=== PATIENT | female | born 1965 | race Caucasian/White ===

== ENCOUNTER 2024-09-03 10:14 | Outpatient (REF) | payer OTHER, SELFPAY ==
--- NOTE | 2024-09-03 10:18 | PFT_ITS ---
Spirometry [] Lung Volumes [] Diffusion Capacity [] Methacholine Challenge [] Flow Volume Loops [] MVV [] MIP/MEP(Max inspiratory pressure/Max expiratory pressure) [] 6 Minute Walk Test [] ABG [] Interpretation [] MTDD
[2024-09-03 11:22] VITALS: PULSE 90; O2SAT 97
--- OUTSIDE RECORDS SUMMARY | 2024-09-03 11:54 | XMS_ITS | Encounter Summary ---
Author Organization [facility] Address [address] [place] [address] Care Team Providers Care Grapple Crew Leader Name Role Phone Lise Decker [place] Primary Care Provider [phone] Encounter Details Date Type Department Care Team (Late st Contact Info) Description 04/25/2024 Orders Only [facility] CT Scan Department [address] [place] [address] Linda Kaufman Social History Tobacco Use Types Packs/Day Years Used Date Smoking Tobacco: Never Assessed Comments Unknown Sex and Gender Information Value Date Recorded Sex Assigned at Female 10/04/2023 6:02 PM EDT Legal Sex Female 3:32 PM EDT Gender Identity Not on file Sexual Orientation Not on file documented as of this encounter Plan of Treatment Not on file documented as of this encounter Visit Diagnoses Not on filedocumented in this encounter Additional Health Concerns Infection Onset Date Last Indicated Resolved Time R/O Respiratory Virus Infection 07/09/2024 07/09/2024 11:01 AM EST R/O Influenza 07/09/2024 07/09/2024 07/09/2024 11: 01 AM EST COVID-19 - Suspected infection 07/09/2024 07/09/2024 07/09/2024 11:01 AM EST R/O Respiratory Virus Infection 07/30/2024 07/30/2024 6:45 PM EDT R/O Influenza 07/30/2024 07/30/2024 07/30/2024 6:4 5 PM EDT COVID-19 - Suspected infection 07/30/2024 07/30/2024 07/30/2024 6:45 PM EDT R/O Respiratory Virus Infection 08/19/2024 04/08/202 5 08/19/2024 1:32 PM EDT R/O Influenza 08/19/2024 08/19/2024 08/19/2024 1:3 2 PM EDT COVID-19 - Suspected infection 08/19/2024 08/19/2024 08/19/2024 1:32 PM EDT documented as of this encounter Care Teams Grapple Crew Leader Relationship Specialty Start Date End Date Lise Decker NP [address] [address] PCP - General 07/09/24 documented as of this encounter
--- OUTSIDE RECORDS SUMMARY | 2024-09-03 11:54 | XMS_ITS ---
Author Organization Andreina Hussein Address [address] [place] [address] Care Team Providers Care Network Technician Name Role Phone Rosales Hdz Primary Care Provider [phone] REASON FOR VISIT (IN OFFICE), Follow Up Encounters Encounter Location Date Provider Diagnosis Andreina Hussein [address] [place] [address] 09/19/19 24 Rosales Hdz PLAN OF TREATMENT No Information
--- OUTSIDE RECORDS SUMMARY | 2024-09-03 11:54 | XMS_ITS | Clinical Summary ---
Author Organization [facility] Address [address] [place] [address] Care Team Providers Care Pattern Illustrator Name Role Phone Lise Decker LAWRENCE Primary Care Provider [phone] Allergies No known active allergies Medications Ventolin HFA 90 mcg/actuation inhaler Inhale 2 puffs by mouth every 6 hours as needed. 5 Active escitalopram (LEXAPRO) 10 mg tablet Take 10 mg by mouth once a day. 5 Active levothyroxine (SYNTHROID, LEVOTHROID) 100 mcg tablet Take 100 mcg by mouth daily. Active LORazepam (ATIVAN) 1 mg tablet Take 1 mg by mouth every 6 hours as needed. Active albuterol (PROAIR HFA,VENTOLIN HFA) 90 mcg inhaler Inhale 2 puffs (180 mcg total) by mouth every 6 hours as needed for wheezing or shortness of breath. Use with spacer. 18 g 5 Active predniSONE (DELTASONE) 20 mg tablet Take 2 tablets (40 mg total) by mouth once a day. 10 tablet 5 Active azithromycin (ZITHROMAX) 250 mg tablet Take 1 tablet (250 mg total) by mouth once a day for 5 days. Take first 2 tablets together, then 1 every day until finished. 6 tablet 5 08/25/19 25 Encounters Date Type Department Care Team Description 08/19/2024 12:44 PM EDT - 08/19/2024 6:08 PM EDT Emergency [facility] Emergency Department [address] [place] [id number] Magdaleno Juárez MD Hyder, Eric C, MD COPD exacerbation (HCC) (Primary Dx) Discharge Disposition: Home or Self Care () 07/30/2024 6:07 PM EDT - 07/30/2024 10:22 PM EDT Emergency [facility] Emergency Department [address] [place] [id number] Galileo Zamora MD Exacerbation of asthma, unspecified asthma severity, unspecified whether persistent (Primary Dx) Discharge Disposition: Home or Self Care () 07/09/2024 10:05 AM EST - 07/09/2024 12:17 PM EST Emergency [facility] Emergency Department [address] [place] [id number] Aurelia Singleton, Vomiting without nausea, unspecified vomiting type (Primary Dx) Discharge Disposition: Home or Self Care () from Last 3 Months Social History Tobacco Use Types Packs/Day Years Used Date Smoking Tobacco: Former Cigarettes Smokeless Tobacco: Never Tobacco Cessation:Counseling Given: Not Answered Alcohol Use Standard Drinks/Week Comments Not Currently 0 (1 standard drink = 0.6 oz pur e alcohol) Comments No Sex and Gender Information Value Date Recorded Sex Assigned at Female 10/04/2023 6:02 PM EDT Legal Sex Female 3:32 PM EDT Gender Identity Not on file Sexual Orientation Not on file Last Filed Vital Signs Vital Sign Reading Time Taken Comments Blood Pressure 134/97 08/19/2024 3:14 PM EDT Pulse 86 08/19/2024 3:14 PM EDT Temperature 36.6 ??C (97.8 ??F) 08/19/2024 12:31 PM E DT Respiratory Rate 22 08/19/2024 12:31 PM EDT Oxygen Saturation 94% 08/19/2024 3:14 PM EDT Inhaled Oxygen Concentration - - Weight 77.1 kg (170 lb) 08/19/2024 12:31 PM EDT Height 162.6 cm (5' 4 ) 08/19/2024 12:31 PM EDT Body Mass Index 29.18 08/19/2024 12:31 PM EDT Plan of Treatment Health Maintenance Due Date Last Done Comments Cologuard 1964 Colon Cancer Screening 1964 Colonoscopy 1964 FOBT / Fit Test 1964 HIV Screening 1964 Hepatitis C Screening 1964 Sigmoidoscopy 1964 Pneumococcal Vaccine: 50+ Years (1 of 2 - PCV) 1983 DTaP,Tdap,and Td Vaccines (1 - Tdap) 1986 Mammogram 2004 Zoster Vaccines (1 of 2) 2014 COVID-19 Vaccine (5 - season) 2024 02/03/2022, 04/22/2021, 06/10/2020, Additional history exists RSV Vaccine (60+ years old and patients) (1 - Risk 60-74 years 1-dose series) 2024 Alcohol/Substance Use Screening 05/14/2024 Depression Screening and Follow-Up 05/14/2024 Social Drivers of Health Annual Screening 05/14/2024 Influenza Vaccine (Season Ended) 2025 04/24/2023, 02/07/2017, 04/11/2016 CT Lung Cancer Screening (12 months, previous LungRADS 1 or 2) 08/19/2025 08/19/2024, 05/15/2024 Hepatitis B Vaccines Aged Out No long er eligible based on patient's age to complete this topic Procedures * Due to [place] state law, this organization might not be sharing negative HIV tests. Procedure Name Priority Date/Time Associated Diagnosis Comments CT CHEST PULMONARY EMBOLISM W CONTRAST STAT 08/19/2024 3:51 PM EDT TROPONIN T HIGH SENSITIVITY Timed 08/19/2024 3:12 PM EDT PTT STAT 08/19/2024 2:00 PM EDT PROTIME-INR STAT 08/19/2024 2:00 PM EDT BLOOD GAS, VENOUS STAT 08/19/2024 2:0 0 PM EDT LACTIC ACID, PLASMA W/ REPEAT STAT 08/19/2024 2:00 PM EDT MVL QS - COVID-19, FLU A/B & RSV RNA PCR, SYMPTOMATIC STAT 08/19/2024 12:43 PM EDT TROPONIN T HIGH SENSITIVITY Timed 08/19/2024 12:41 PM EDT BASIC METABOLIC PANEL STAT 08/19/2024 12:41 PM EDT CBC AUTO DIFFERENTIAL STAT 08/19/2024 12:41 PM EDT ECG 12-LEAD STAT 08/19/2024 12:33 PM EDT MAGNESIUM STAT 07/30/2024 8:58 PM EDT BASIC METABOLIC PANEL STAT 07/30/2024 8:58 PM EDT XR CHEST 2 VW STAT 07/30/2024 8:52 PM EDT CBC AUTO DIFFERENTIAL STAT 07/30/2024 7:42 PM EDT MVL QS - COVID-19, FLU A/B & RSV RNA PCR, SYMPTOMATIC STAT 07/30/2024 6:00 PM EDT ECG 12-LEAD STAT 07/30/2024 5:54 PM EDT XR CHEST 2 VW STAT 07/09/2024 11:54 AM EST LIPASE STAT 07/09/2024 11:32 AM EST COMPREHENSIVE METABOLIC PANEL STAT 07/09/2024 11:32 AM EST CBC AUTO DIFFERENTIAL STAT 07/09/2024 11:32 AM EST MVL QS - COVID-19, FLU A/B & RSV RNA PCR, SYMPTOMATIC STAT 07/09/2024 10:05 AM EST from Last 3 Months Results * Due to [place] state law, this organization might not be sharing negative HIV tests. * CT Chest Pulmonary Embolism W Contrast (08/19/2024 3:51 PM EDT) Anatomical Region Laterality Modality Body Computed Tomogra phy 08/19/2024 4:56 PM EDT Impressions 08/19/2024 5:22 PM EDT 1. ??No evidence of pulmonary embolism. 2. ??No acute abnormality in the chest. 3. ??Background mild mixed centrilobular and paraseptal emphysema. I, Lise Rizo, have reviewed the examination and concur with the findings as reported or so edited. Trainee: ??Otoniel Hodges If this radiology report contains a blank impression section, it is an incomplete radiology report. ??Please contact the interpreting radiologist or applicable radiology division as soon as possible to obtain the completed interpretation. ? Workstation ID: [id number] Up-to-date CT equipment and radiation dose reduction techniques were employed. CTDIvol: .8 - 17.0 mGy. DLP: 495 mGy-cm. Narrative 08/19/2024 5:22 PM EDT COMPARISON: CT chest 05/15/2024 ?? FINDINGS: Exam limited by respiratory motion artifact. Pulmonary arteries: The pulmonary arteries are normal in caliber without intraluminal filling defects to indicate pulmonary embolism. ?? Lower neck: Unremarkable. Lungs and Airways: The central airways are patent. Bilateral lower lobe bronchial wall thickening and irregularity. Background mild mixed emphysema. There is no consolidation or septal thickening. Dependent atelectasis. Pleura: There is no pleural effusion or pneumothorax. Heart and Mediastinum: Heart size is normal. ??There is no pericardial effusion. The thoracic aorta is normal in caliber without evidence of dissection. ??No mediastinal or hilar lymphadenopathy. Patulous esophagus. Small hiatal hernia. Upper Abdomen: Limited evaluation of the upper abdomen is unremarkable. Bones and Soft Tissues: There are no suspicious osseous lesions. No acute osseous or soft tissue abnormality. Resulting Agency Comment [id number] Procedure Note Lise Rizo MD PhD - 08/19/2024 COMPARISON: CT chest 05/15/2024 FINDINGS: Exam limited by respiratory motion artifact. Pulmonary arteries: The pulmonary arteries are normal in caliber withoutintraluminal filling defects to indicate pulmonary embolism. Lower neck: Unremarkable. Lungs and Airways: The central airways are patent. Bilateral lower lobebronchial wall thickening and irregularity. Background mild mixedemphysema. There is no consolidation or septal thickening. Dependentatelectasis. Pleura: There is no pleural effusion or pneumothorax. Heart and Mediastinum: Heart size is normal. There is no pericardialeffusion. The thoracic aorta is normal in caliber without evidence ofdissection. No mediastinal or hilar lymphadenopathy. Patulous esophagus.Small hiatal hernia. Upper Abdomen: Limited evaluation of the upper abdomen is unremarkable. Bones and Soft Tissues: There are no suspicious osseous lesions. No acuteosseous or soft tissue abnormality. IMPRESSION: 1. No evidence of pulmonary embolism. 2. No acute abnormality in the chest. 3. Background mild mixed centrilobular and paraseptal emphysema. I, Lise Rizo, have reviewed the examination and concur with thefindings as reported or so edited. Trainee: Otoniel Hodges If this radiology report contains a blank impression section, it is anincomplete radiology report. Please contact the interpreting radiologistor applicable radiology division as soon as possible to obtain thecompleted interpretation. Workstation ID: [id number] Up-to-date CT equipment and radiation dose reduction techniques wereemployed. CTDIvol: .8 - 17.0 mGy. DLP: 495 mGy-cm. Brittney MITCHELL [facility] CT PROCEDURES Final Resul t * Troponin T, High Sensitivity X2 (now + 2hrs) (08/19/2024 3:12 PM EDT) Only the most recent of2 resultswithin the time period is included. Troponin T High Sensitivity 6 6 - 14 ng/L 08/19/2024 3:41 PM EDT [facility] Comment: Qr-Bndcbypv-K level of 52 ng/L or higher at 0-hour at presentation is recommended by the ESC 0/1-hour algorithm for identifying patients at high risk for ruling in acute myocardial infarction (AMI) in the appropriate clinical context. Repeat troponin testing 1-3 hours after the initial sample may be helpful in assessing for ongoing myocardial injury. Troponin elevations can be seen in several other non-infarct conditions, and the change (delta) should be evaluated in line with the 4th Bristol Definition of AMI. Troponin baseline and serial elevation for a significant delta should be interpreted with clinical presentation, history, signs and symptoms, ECG, and biomarker concentrations. For inpatient setting: Value <12ng/L is considered negative for all genders. 0-1hr: A delta change of <3 will be considered negative/flat if chest pain onset >3 hours 0-3hr: A delta change of <7 will be considered negative/flat Blood Structure of peripheral vein / Unknown Venipuncture / Unknown 08/19/2024 3:12 PM EDT 08/19/2024 3:17 PM EDT Magdaleno Juárez MD LAB BLOOD ORDERABLES Final Resul t Performing Organization Address City/[facility]/ZIP Co de Phone Number [facility] [address] [address], [place] [phone] * Lactic Acid, Plasma (w/Reflex if >2) (08/19/2024 2:00 PM EDT) Lactic Acid 1.8 0.5 - 2.0 mmol/L 08/19/2024 2:37 PM EDT [facility] Blood Structure of peripheral vein / Unknown Venipuncture / Unknown 08/19/2024 2:00 PM EDT 08/19/2024 2:11 PM EDT Brittney MITCHELL LAB BLOOD ORDERABLES Final Re sult [facility] [address] [address], [place] [phone] * PTT (08/19/2024 2:00 PM EDT) aPTT 32.0 25.0 - 37.0 Seconds 08/19/2024 2:32 PM EDT [facility] Blood Structure of peripheral vein / Unknown Venipuncture / Unknown 08/19/2024 2:00 PM EDT 08/19/2024 2:11 PM EDT Brittney MITCHELL LAB BLOOD ORDERABLES Final Re sult Performing Organization Address [facility] de Phone Number [facility] [address] [address], [place] [phone] * Protime-INR (08/19/2024 2:00 PM EDT) INR 1.0 0.9 - 1.1 08/19/2024 2:29 PM EDT [facility] Comment:The optimal therapeu tic INR range for patients treated with Vitamin K antagonists (VKAS, e.g., Warfarin) is 2.0 to 3.5. Discuss the desired range with your doctor/care team. Blood Structure of peripheral vein / Unknown Venipuncture / Unknown 08/19/2024 2:00 PM EDT 08/19/2024 2:11 PM EDT Brittney MITCHELL LAB BLOOD ORDERABLES Final Re sult Performing Organization Address [facility] Co de Phone Number [facility] [address] [address], [place] [phone] * (ABNORMAL) Blood gas, venous (08/19/2024 2:00 PM EDT) pH, Venous 7.46(H) 7.35 - 7.45 08/19/2024 2:19 PM EDT [facility] pCO2, Venous 37.0 mm[Hg] 08/19/2024 2:19 PM EDT [facility] pO2, Jesse 51.0 mm[Hg] 08/19/2024 2:19 PM EDT [facility] RT HCO3, Venous 27 mmol/L 08/19/2024 2:19 PM EDT [facility] O2 Sat, Venous 87.7 % 08/19/2024 2:19 PM EDT [facility] Base Excess, Jesse 2.5 mmol/L 08/19/2024 2:19 PM EDT [facility] Blood Structure of peripheral vein / Unknown Venipuncture / Unknown 08/19/2024 2:00 PM EDT 08/19/2024 2:16 PM EDT us Brittney MITCHELL LAB BLOOD ORDERABLES Final Re sult [facility] [address] [place] [address], [place] [phone] * COVID-19, Flu A/B & RSV RNA PCR, Symptomatic (08/19/2024 12:43 PM EDT) Only the most recent of3 resultswithin the time period is included. PCR, SARS CoV-2 RNA Not Detected Not Detected [facility]P[employer]EXP[facility] 08/19/2024 1:32 PM EDT [facility] Flu A RNA PCR Not Detected Not Detected CEPID GENEXPERT 08/19/2024 1:32 PM EDT [facility] Flu B RNA PCR Not Detected Not Detected CEPHEID GENEXPERT 08/19/2024 1:32 PM EDT [facility] RSV RNA PCR Not Detected Not Detected [employer]ID [employer]EXPERT 08/19/2024 1:32 PM EDT [facility] Comment: Limitations: This RSV test is suitable for the pediatric population (less than 19 years of age) only. Performance characteristics have not been established for use with patients older than 19 years of age and immunocompromised patients. Test results must be evaluated in conjuction with other clinical data available to the physician. Swab Specimen from nasopharyngeal structure / Unknown Non-Blood Collection / Unknown 08/19/2024 12:43 PM EDT 08/19/2024 12:48 PM EDT Narrative [facility] - 08/19/2024 1:32 PM EDT Methodology: The [employer] GeneXpert CoV-2/Flu/RSV plus assay is For Use Under an Emergency Use Authorization (EUA) Only with [employer]. The CoV-2/Flu/RSV plus assay is a rapid, multiplexed real-time RT-PCR assay intended for the simultaneous qualitative detection and differentiation of RNA from SARS-CoV-2, influenza A, influenza B, and Respiratory Syncytial Virus (RSV) in specimens collected from individuals suspected of a respiratory viral infection, by their healthcare provider. A positive test result for SARS-CoV-2, influenza or RSV indicates that RNA from that virus was detected. A negative test result indicates that RNA virus was not present in the specimen above the limit of detection. Therefore, a negative result does not rule out SARS-CoV-2, influenza or RSV infection and should not be used as the sole basis for treatment or other patient management decisions. Magdaleno Juárez MD LAB BODY FLUIDS AND STOOLS ORDER ROOPA Final Result Performing Organization Address City/State/[facility] Co de Phone Number [facility] [address] [place] [address], [place] [phone] * (ABNORMAL) CBC Auto Differential (08/19/2024 12:41 PM EDT) Only the most recent of3 resultswithin the time period is included. WBC 12.2(H) 4.8 - 10.8 10*3/uL 08/19/2024 12:54 PM EDT [facility] RBC 4.99 4.20 - 5.40 10*6/uL 08/19/2024 12:54 PM EDT [facility] Hemoglobin 15.2 11.7 - 15.5 g/dL 08/19/2024 12:54 PM EDT [facility] Hematocrit 44.1 35.7 - 45.8 % 08/19/2024 12:54 PM EDT [facility] MCV 88.4 81.0 - 99.0 fL 08/19/2024 12:54 PM EDT [facility] MCH 30.5 26.0 - 34.0 pg 08/19/2024 12:54 PM EDT [facility] MCHC 34.5 31.0 - 36.0 g/dL 08/19/2024 12:54 PM EDT [facility] RDW 14.0 12.0 - 15.0 % 08/19/2024 12:54 PM EDT [facility] RDW Standard Deviation 45.1 36.4 - 46.3 fL 08/19/2024 12:54 PM EDT [facility] Platelets 318 140 - 440 10*3/uL 08/19/2024 12:54 PM EDT [facility] MPV 9.9 9.4 - 12.3 fL 08/19/2024 12:54 PM EDT [facility] Neutrophil % 70.8 50.0 - 75.0 % 08/19/2024 12:54 PM EDT [facility] Immature Grans % 0.2 0.0 - 0.9 % 08/19/2024 12:54 PM EDT [facility] Lymphocyte % 16.7(L) 20.0 - 44.0 % 08/19/2024 12:54 PM EDT [facility] Monocyte % 5.3 0.0 - 14.0 % 08/19/2024 12:54 PM EDT [facility] Eosinophil % 6.0(H) 0.0 - 5.0 % 08/19/2024 12:54 PM EDT [facility] Basophil % 1.0 0.0 - 2.0 % 08/19/2024 12:54 PM EDT [facility] Neutrophil # 8.66(H) 1.80 - 7.70 10*3/uL 08/19/2024 12:54 PM EDT [facility] Immature Grans # 0.03 0.00 - 0.03 10*3/uL 08/19/2024 12:54 PM EDT [facility] Lymphocyte # 2.10 1.00 - 4.75 10*3/uL 08/19/2024 12:54 PM EDT [facility] Monocyte # 0.70(H) 0.00 - 0.60 10*3/uL 08/19/2024 12:54 PM EDT [facility] Eosinophil # 0.70 0.00 - 0.80 10*3/uL 08/19/2024 12:54 PM EDT [facility] Basophil # 0.10 0.00 - 0.20 10*3/uL 08/19/2024 12:54 PM EDT [facility] nRBC % 0.0 0 - 0 /100 WBCs 08/19/2024 12:54 PM EDT [facility] nRBC # <0.01 0.00 - 0.13 10*3/uL 08/19/2024 12:54 PM EDT [facility] Blood Structure of peripheral vein / Unknown Venipuncture / Unknown 08/19/2024 12:41 PM EDT 08/19/2024 12:47 PM EDT Magdaleno Juárez MD LAB BLOOD ORDERABLES Final Resul t [facility] [address] [place] [address] [address] [place] [address], [place] [phone] * Basic Metabolic Panel (08/19/2024 12:41 PM EDT) Only the most recent of2 resultswithin the time period is included. NA 140 136 - 145 mmol/L 08/19/2024 1:17 PM EDT [facility] K 4.0 3.5 - 5.1 mmol/L 08/19/2024 1:17 PM EDT [facility] Cl 104 98 - 109 mmol/L 08/19/2024 1:17 PM EDT [facility] CO2 22 22 - 32 mmol/L 08/19/2024 1:17 PM EDT [facility] BUN 9 8 - 23 mg/dL 08/19/2024 1:17 PM EDT [facility] Creatinine 0.69 0.50 - 1.12 mg/dL 08/19/2024 1:17 PM EDT [facility] Glucose 95 60 - 99 mg/dL 08/19/2024 1:17 PM EDT [facility] Calcium 9.7 8.4 - 10.4 mg/dL 08/19/2024 1:17 PM EDT [facility] Anion Gap 18 >=0 08/19/2024 1:17 PM EDT [facility] eGFR >90 >=60 mL/min/1. 73m2 08/19/2024 1:17 PM EDT [facility] Comment:The estimated glomer ular filtration rate (eGFR) is calculated using a new formula developed by the NKF-ASN task force to eliminate race-based correction factors. The new formula uses serum/plasma creatinine, age, and gender to determine eGFR. A value below 60mls/min might indicate kidney disease and will be flagged. For additional information, see Aleksandar et al, Am J Kidney Dis. 2021;79(2):268- 288, A Unifying Approach for GFR estimation: Recommendations of the NKF-ASN Task Force on Reassessing the Inclusion of Race in Diagnosing Kidney Disease . Blood Structure of peripheral vein / Unknown Venipuncture / Unknown 08/19/2024 12:41 PM EDT 08/19/2024 12:48 PM EDT Magdaleno Juárez MD LAB BLOOD ORDERABLES Final Resul t [facility] [address] [place] [address] [address] [place] [address], * ECG 12 lead (08/19/2024 12:33 PM EDT) Only the most recent of2 resultswithin the time period is included. Ventricular Rate EKG 84 BPM MUSE EKG Atrial Rate 84 BPM MUSE EKG AZ Interval 148 ms MUSE EKG QRS Interval 98 ms MUSE EKG QT Interval 373 ms MUSE EKG QTC Interval 441 ms MUSE EKG P [place] 39 degrees MUSE EKG R [place] -5 degrees MUSE EKG T Wave [place] 21 degrees MUSE EKG 08/19/2024 12:3 3 PM EDT 08/20/2024 10:22 AM EDT Impressions MUSE EKG - 08/20/2024 10:22 AM EDT Sinus rhythm Probable left ventricular hypertrophy Poor R-wave progression Septal leads Confirmed by Andrés Meza ([id number]) on 08/20/2024 10:22:51 AM us Magdaleno Juárez MD ECG ORDERABLES Final Result Performing Organization Address City/[facility]/ZIP Co de Phone Number MUSE EKG * Magnesium (07/30/2024 8:58 PM EDT) MG 1.9 1.5 - 2.5 mg/dL 07/30/2024 9:29 PM EDT [facility] Blood Structure of peripheral vein / Unknown Venipuncture / Unknown 07/30/2024 8:58 PM EDT 07/30/2024 9:06 PM EDT us Yamila MITCHELL LAB BLOOD ORDERABLES Final R esult Performing Organization Address City/[facility] Co de Phone Number [facility] [address] [place] [address], [place] [phone] * X-Ray Chest 2 Views (07/30/2024 8:52 PM EDT) Only the most recent of2 resultswithin the time period is included. Anatomical Region Laterality Modality Body Radiographic Jessica ging 07/30/2024 8:54 PM EDT Impressions 07/30/2024 8:55 PM EDT No acute pulmonary process. If this radiology report contains a blank impression section, it is an incomplete radiology report. ??Please contact the interpreting radiologist or applicable radiology division as soon as possible to obtain the completed interpretation. ? Workstation ID: [id number] Narrative 07/30/2024 8:55 PM EDT COMPARISON: 07/09/2024. FINDINGS: The lungs are clear without focal consolidation, pleural effusion or pneumothorax. The cardiac silhouette and mediastinum are unremarkable. The pulmonary vasculature is within normal limits. There are no focal osseus lesions. ??There is no pneumomediastinum or subdiaphragmatic free air. Resulting Agency Comment [id number] Procedure Note Stew Butt MD - 07/30/2024 COMPARISON: 07/09/2024. FINDINGS: The lungs are clear without focal consolidation, pleural effusion orpneumothorax. The cardiac silhouette and mediastinum are unremarkable. Thepulmonary vasculature is within normal limits. There are no focal osseuslesions. There is no pneumomediastinum or subdiaphragmatic free air. IMPRESSION: No acute pulmonary process. If this radiology report contains a blank impression section, it is anincomplete radiology report. Please contact the interpreting radiologistor applicable radiology division as soon as possible to obtain thecompleted interpretation. Workstation ID: [id number] Yamila MITCHELL IMG XR PROCEDURES Final Resu lt * Lipase (07/09/2024 11:32 AM EST) Lipase 31 13 - 60 U/L 07/09/2024 12:03 PM EST [facility] Blood Structure of peripheral vein / Unknown Venipuncture / Unknown 07/09/2024 11:32 AM EST 07/09/2024 11:35 AM EST Aurelia Singleton DO LAB BLOOD ORDERABLES Final Result [facility] [address] [place] [address] [address] [place] [address], [place] [phone] * (ABNORMAL) CMP - Comprehensive Metabolic Panel (07/09/2024 11:32 AM EST) NA 139 136 - 145 mmol/L 07/09/2024 12:03 PM EST [facility] K 3.9 3.5 - 5.1 mmol/L 07/09/2024 12:03 PM EST [facility] Cl 101 98 - 109 mmol/L 07/09/2024 12:03 PM EST [facility] CO2 25 22 - 32 mmol/L 07/09/2024 12:03 PM [facility] Anion Gap 17 >=0 07/09/2024 12:03 PM [facility] Glucose 101(H) 60 - 99 mg/dL 07/09/2024 12:03 PM [facility] Creatinine 0.67 0.50 - 1.12 mg/dL 07/09/2024 12:03 PM [facility] Calcium 9.6 8.4 - 10.4 mg/dL 07/09/2024 12:03 PM [facility] Total Protein 8.2 6.6 - 8.7 g/dL 07/09/2024 12:03 PM [facility] Albumin 4.5 3.5 - 5.0 g/dL 07/09/2024 12:03 PM [facility] Bilirubin, Total 0.4 0.2 - 1.2 mg/dL 07/09/2024 12:03 PM [facility] Alkaline Phosphatase 48 40 - 129 U/L 07/09/2024 12:03 PM [facility] AST 21 0 - 33 U/L 07/09/2024 12:03 PM [facility] [facility] ALT 21 <=33 U/L 07/09/2024 12:03 PM [facility] BUN 12 8 - 23 mg/dL 07/09/2024 12:03 PM [facility] eGFR >90 >=60 mL/min/1. 73m2 07/09/2024 12:03 PM [facility] Comment:The estimated glomer ular filtration rate (eGFR) is calculated using a new formula developed by the NKF-ASN task force to eliminate race-based correction factors. The new formula uses serum/plasma creatinine, age, and gender to determine eGFR. A value below 60mls/min might indicate kidney disease and will be flagged. For additional information, see Aleksandar gabriel al, Am J Kidney Dis. 2021;79(2):268- 288, A Unifying Approach for GFR estimation: Recommendations of the NKF-ASN Task Force on Reassessing the Inclusion of Race in Diagnosing Kidney Disease . Globulin, Total 3.7 2.1 - 4.2 g/dL 07/09/2024 12:03 PM EST [facility] A/G Ratio 1.2(L) 1.5 - 3.0 07/09/2024 12:03 PM EST [facility] Blood Structure of peripheral vein / Unknown Venipuncture / Unknown 07/09/2024 11:32 AM EST 07/09/2024 11:35 AM EST us Aurelia Singleton DO LAB BLOOD ORDERABLES Final Result [facility] [address] [address], from Last 3 Months Insurance HSNO/FREE CARE Care Teams Pattern Illustrator Relationship Specialty Start Date End Date Lise Decker NP [facility] [address] [place] [address] PCP - General 07/09/24
--- OUTSIDE RECORDS SUMMARY | 2024-09-03 11:54 | XMS_ITS | Clinical Summary ---
Author Organization [facility] Address [address] [place] [address] Care Team Providers Care Quarry Plug And Feather Driller Name Role Phone Pcp, None MD Primary Care Provider [phone] Medications levothyroxine (SYNTHROID, LEVOTHROID) 100 mcg tablet 05/15/2022 Active LORazepam (ATIVAN) 1 mg tablet 05/15/2022 Active Social History Tobacco Use Types Packs/Day Years Used Date Smoking Tobacco: Never Assessed Comments Unknown Sex and Gender Information Value Date Recorded Sex Assigned at Not on file Legal Sex Female 11:24 AM EST Gender Identity Not on file Sexual Orientation Not on file Plan of Treatment Health Maintenance Due Date Last Done Comments MMR Vaccines (1 of 1 - Stand nelly series) 1965 Hepatitis C Screening 1982 Periodic Health Exam 1982 Tetanus Diphtheria and Pertu ssis Vaccines (TD and TDaP) (1 - Tdap) 1983 PAP Screening 1994 Breast Cancer Screening 2004 Colon Cancer Screening 2009 Shingrix (Zoster Recombinant ) Vaccine (1 of 2) 2014 Influenza (Seasonal) 12/13/2023 CoVid-19 Vaccine (2023-2 5 season) 2024 HIB Vaccines Aged Out No longer eligi ble based on patient's age to complete this topic HPV Vaccines Aged Out No longer eligi ble based on patient's age to complete this topic Meningococcal Vaccine Aged Out No earle kathryn eligible based on patient's age to complete this topic Pneumococcal Vaccine: Pediat rics (0 to 5 Years) and At-Risk Patients (6 to 64 Years) Aged Out No longer eligible b ased on patient's age to complete this topic Insurance [facility] STANDARD Care Teams Quarry Plug And Feather Driller Relationship Specialty Start Date End Date Pcp, MD Nasreen [address] [place] [address] PCP - General Internal Medicine 06/13/22
--- OUTSIDE RECORDS SUMMARY | 2024-09-03 11:54 | XMS_ITS | Patient Health Record ---
Author Organization José [facility]gior[facility] Address [address] [place] [id number] Care Team Providers Care Telemarketer Name Role Phone José MiguelgiorgioRosales Primary Care Provider ALLERGIES No Known Allergies RESULTS Component Value Reference Range Notes [id number] Reviewed date:10/06/2023 09:07:36 AM Interpretation: Performing Lab:[facility], [address] [facility], Phone - [phone], Director - Merlyn Notes/Report: Protein, Total 6.6 6.0-8.5 g/dL Albumin 4.1 3.8-4.9 g/dL Bilirubin, Total 0.3 0.0-1.2 mg/dL Bilirubin, Direct <0.10 0.00-0.40 mg/dL Bilirubin, Indirect <.20 0.10-0.80 mg/dL Alkaline Phosphatase 40 44-121 IU/L AST (SGOT) 20 0-40 IU/L ALT (SGPT) 18 0-32 IU/L LP+Non-HDL Cholesterol-62870 5 Reviewed date:10/06/2023 09:07:36 AM Interpretation: Performing Lab:[facility] [place], [address] [facility] [place], Phone - [phone], Director - MDPadmini Notes/Report: Cholesterol, Total 148 100-199 mg/dL Triglycerides 56 0-149 mg/dL HDL Cholesterol 66 >39 mg/dL VLDL Cholesterol Adebayo 12 5-40 mg/dL LDL Chol Calc ([facility]) 70 0-99 mg/dL Non-HDL Cholesterol 82 0-129 mg/dL Comment: REASON FOR REFERRAL No Information MEDICATIONS Medication SIG (Take, Route, Frequency, Duration) Notes Start Date End Date Status Rosuvastatin Calcium 10 MG 1 tablet Oral ly Once a day 06/21/2023 Active Vitamin D3 50 MCG (1999 UT) 1 capsule Or ally Once a day 06/21/2023 Active Levothyroxine Sodium 100 MCG 1 tablet in the morning on an empty stomach Orally Once a day Active LORazepam 1 MG TAKE ONE TABLET BY M OUTH THREE TIMES A DAY for 30 11/10/2023 Active LORazepam 1 MG 1 tablet at bedtime as needed Orally Once a day Active Nystatin 801596 UNIT/ML 4 ml Mouth/Throa t Four times a day for 14 day(s) 07/23/2023 Active SOCIAL HISTORY Tobacco Use: Social History Observation Description Date Details (start date - stop date) Current Smoker NA - NA Sex Assigned At : Social History Observation Description Sex Assigned At Unknown Tobacco Use/Smoking Question Answer Notes Are you a current smoker PROBLEMS Problem Type ICD Code Onset Dates Problem Status W/U Status Risk SNOMED Code Notes Problem Vitamin D deficiency (E55.9) Active confirmed 73974204 Problem Generalized anxiety disorder (F41.1) Active confirmed 12927678 Problem Mixed hyperlipidemia (E78.2) Active confirmed 674073063 Problem Acquired hypothyroidism (E03.9) Active confirmed 981205614 Problem Nicotine use disorder (F17.200) Active confirmed 73464464 VITAL SIGNS Heart Rate 72 /min 11/21/2023 Blood pressure diastolic 70 mm Hg 11/21/2023 Height 64 in 11/21/2023 Blood pressure systolic 100 mm Hg 11/21/2023 Weight 152 lbs 11/21/2023 BMI 26.09 kg/m2 11/21/2023 Encounters Encounter Location Date Provider Diagnosis [address] [address] 09/10/2023 Rosales Hdz Generalized anxiety disorder F41.1 and Acquired hypothyroidism E03.[address] [address] 09/19/[address] [address] 10/09/2023 [address] [address] 11/21/2023 Rosales Hdz Acquired hypothyroid ism E03.9 ; Mixed hyperlipidemia E78.2 ; Generalized anxiety disorder F41.1 ; Vitamin D deficiency E55.9 and Nicotine use disorder F17.200 ASSESSMENTS Encounter Date Diagnosis Assessment Notes Treatment Notes Treatment Clinical Notes 11/21/2023 Mixed hyperlipidemia (ICD-10 - E78.2) 11/21/2023 Acquired hypothyroidism (ICD-10 - E03.9) 09/10/2023 Generalized anxiety disorder (ICD-10 - F41.1) 11/21/2023 Generalized anxiety disorder (ICD-10 - F41.1) 09/10/2023 Acquired hypothyroidism (ICD-10 - E03.9) 11/21/2023 Vitamin D deficiency (ICD-10 - E55.9) 11/21/2023 Nicotine use disorder (ICD-10 - F17.200) Smoking cessation encouraged various treatment options discussed with patient. 11/21/2023 Other This chart has been transcribed by a computerized dictation system. There are likely to be multiple chief gauger inaccuracies despite chart review. PLAN OF TREATMENT Pending Test Test Name Order Date HEPATIC FUNCTION PANEL 06/21/2023 LIPID PANEL 06/21/2023 Insurance Providers Payer Name Payer Address Payer Phone Subscriber Number Group Number Insured Name Patient Relationship to Insured Coverage Start Date Coverage End Date [facility] [address] [place] [address] Cindy Valenzuela Self - patient is the insured MEDICAL (GENERAL) HISTORY Medical History History ICD Code Acquired hypothyroidism E03.9 Generalized anxiety disorder F41.1 Nicotine use disorder F17.200 Surgical History Surgery Date(Month/Year) Partial Hysterectomy 2004 Appendectomy 2009 Hospitalization History Reason Date(Month/Year) For above procedures
--- OUTSIDE RECORDS SUMMARY | 2024-09-03 11:54 | XMS_ITS | Referral Summary ---
Author Organization [facility] Address [address] [place] [address] Care Team Providers Care Chemical Manager Name Role Phone Lise Decker LAWR[place] Primary Care Provider [phone] Encounters Date Type Department Care Team Description 08/19/2024 12:44 PM EDT - 08/19/2024 6:08 PM EDT Emergency [facility] Emergency Department [address] [place] [id number] Magdaleno Juárez MD Hyder, Eric C, MD COPD exacerbation (HCC) (Primary Dx) Discharge Disposition: Home or Self Care () 07/30/2024 6:07 PM EDT - 07/30/2024 10:22 PM EDT Emergency [facility] Emergency Department [address] [place] [phone] Galileo Zamora MD Exacerbation of asthma, unspecified asthma severity, unspecified whether persistent (Primary Dx) Discharge Disposition: Home or Self Care () 07/09/2024 10:05 AM EST - 07/09/2024 12:17 PM EST Emergency [facility] Emergency Department [address] [place] [phone] Aurelia Singleton, Vomiting without nausea, unspecified vomiting type (Primary Dx) Discharge Disposition: Home or Self Care () from Last 3 Months Allergies No known active allergies Medications Ventolin HFA 90 mcg/actuation inhaler Inhale 2 puffs by mouth every 6 hours as needed. Active escitalopram (LEXAPRO) 10 mg tablet Take [...] until finished. 6 tablet 5 08/25/19 25 Social History Tobacco Use Types Packs/Day Years [...] 08/19/2024 12:31 PM EDT Plan of Treatment Not on file Procedures * Due to [place] state law, this organization might not be [...] Last 3 Months Results * Due to [place] state law, this organization might not be [...] obtain the completed interpretation. ? Workstation ID: [id number] Up-to-date CT equipment and radiation dose reduction [...] or soft tissue abnormality. Resulting Agency Comment [id number] Procedure Note Lise Rizo MD PhD - [...] possible to obtain thecompleted interpretation. Workstation ID: [id number] Up-to-date CT equipment and radiation dose reduction techniques wereemployed. CTDIvol: .8 - 17.0 mGy. DLP: 495 mGy-cm. Brittney MITCHELL IMG CT PROCEDURES Final Resul t * Troponin T, High Sensitivity X2 (now + 2hrs) (08/19/2024 3:12 PM EDT) Only the most recent of2 resultswithin the time period is included. Troponin T High Sensitivity 6 6 - 14 ng/L 08/19/2024 3:41 PM EDT [facility] Comment: Sq-Yjsvaisu-I level of 52 ng/L or higher at [...] be evaluated in line with the 4th [place] Definition of AMI. Troponin baseline and serial [...] 3:12 PM EDT 08/19/2024 3:17 PM EDT us Magdaleno Juárez MD LAB BLOOD ORDERABLES Final Resul t [facility] [address] [facility] [address] [place] [address], [place] [phone] * Lactic Acid, Plasma (w/Reflex if >2) (08/19/2024 2:00 PM EDT) Lactic Acid 1.8 0.5 - 2.0 mmol/L 08/19/2024 2:37 PM EDT [facility] Blood Structure of peripheral vein / Unknown Venipuncture / Unknown 08/19/2024 2:00 PM EDT 08/19/2024 2:11 PM EDT Brittney MITCHELL LAB BLOOD ORDERABLES Final Re sult Performing Organization Address [facility] Co de Phone Number [facility] [address] [place] [address], [place] [phone] * PTT (08/19/2024 2:00 PM EDT) aPTT 32.0 25.0 - 37.0 Seconds 08/19/2024 2:32 PM EDT [facility] Blood Structure of peripheral vein / Unknown Venipuncture / Unknown 08/19/2024 2:00 PM EDT 08/19/2024 2:11 PM EDT Brittney MITCHELL LAB BLOOD ORDERABLES Final Re sult Performing Organization Address [facility] de Phone Number [facility] [address] [place] [address], [place] [phone] * Protime-INR (08/19/2024 2:00 PM EDT) INR 1.0 0.9 - 1.1 08/19/2024 2:29 PM EDT [facility] Comment:The optimal therapeu tic INR range for patients treated with Vitamin K antagonists (VKAS, e.g., Warfarin) is 2.0 to 3.5. Discuss the desired range with your doctor/care team. Blood Structure of peripheral vein / Unknown Venipuncture / Unknown 08/19/2024 2:00 PM EDT 08/19/2024 2:11 PM EDT Brittney MITCHELL LAB BLOOD ORDERABLES Final Re sult Performing Organization Address [facility] Co de Phone Number [facility] [address] [place] [address] [place] [address], [place] [phone] * (ABNORMAL) Blood gas, venous (08/19/2024 2:00 PM EDT) pH, Venous 7.46(H) 7.35 - 7.45 08/19/2024 2:19 PM EDT [facility] pCO2, Venous 37.0 mm[Hg] 08/19/2024 2:19 PM EDT [facility] pO2, Jesse 51.0 mm[Hg] 08/19/2024 2:19 PM EDT [facility] HCO3, Venous 27 mmol/L 08/19/2024 2:19 PM EDT [facility] O2 Sat, Venous 87.7 % 08/19/2024 2:19 PM EDT [facility] Base Excess, Jesse 2.5 mmol/L 08/19/2024 2:19 PM EDT [facility] Blood Structure of peripheral vein / Unknown Venipuncture / Unknown 08/19/2024 2:00 PM EDT 08/19/2024 2:16 PM EDT us Brittney MITCHELL LAB BLOOD ORDERABLES Final Re sult [facility] [address] [place] [address], [place] [phone] * COVID-19, Flu A/B & RSV RNA PCR, Symptomatic (08/19/2024 12:43 PM EDT) Only the most recent of3 resultswithin the time period is included. Pathologist [facility] PCR, SARS CoV-2 RNA Not Detected Not Detected CEPHEID GENEXPERT 08/19/2024 1:32 PM EDT [facility] Flu A RNA PCR Not Detected Not Detected CEPHEID GENEXPERT 08/19/2024 1:32 PM EDT [facility] Flu B RNA PCR Not Detected Not Detected CEPAppboyID GENEXPERT 08/19/2024 1:32 PM EDT [facility] RSV RNA PCR Not Detected Not Detected CEPAppboyID GENEXPERT 08/19/2024 1:32 PM EDT [facility] Comment: Limitations: This RSV test is [...] PM EDT 08/19/2024 12:48 PM EDT Narrative [facility] - 08/19/2024 1:32 PM EDT Methodology: The [employer] GeneXpert CoV-2/Flu/RSV plus assay is For Use Under an Emergency Use Authorization (EUA) Only with [employer]. The CoV-2/Flu/RSV plus assay is a [...] for treatment or other patient management decisions. us Magdaleno Juárez MD LAB BODY FLUIDS AND STOOLS ORDER ROOPA Final Result [facility] [address] [facility] [address] [place] [address], * (ABNORMAL) CBC Auto Differential (08/19/2024 12:41 PM EDT) Only the most recent of3 resultswithin the time period is included. WBC 12.2(H) 4.8 - 10.8 10*3/uL 08/19/2024 12:54 PM EDT [facility] RBC 4.99 4.20 - 5.40 10*6/uL 08/19/2024 12:54 PM EDT [facility] Hemoglobin 15.2 11.7 - 15.5 g/dL 08/19/2024 12:54 PM EDT [facility] Hematocrit 44.1 35.7 - 45.8 % 08/19/2024 12:54 PM EDT [facility] MCV 88.4 81.0 - 99.0 fL 08/19/2024 12:54 PM EDT [facility] MCH 30.5 26.0 - 34.0 pg 08/19/2024 12:54 PM EDT [facility] MCHC 34.5 31.0 - 36.0 g/dL 08/19/2024 12:54 PM EDT [facility] RDW 14.0 12.0 - 15.0 % 08/19/2024 12:54 PM EDT [facility] RDW Standard Deviation 45.1 36.4 - 46.3 fL 08/19/2024 12:54 PM EDT [facility] Platelets 318 140 - 440 10*3/uL 08/19/2024 12:54 PM EDT [facility] MPV 9.9 9.4 - 12.3 fL 08/19/2024 12:54 PM EDT [facility] Neutrophil % 70.8 50.0 - 75.0 % 08/19/2024 12:54 PM EDT [facility] Immature Grans % 0.2 0.0 - 0.9 % 08/19/2024 12:54 PM EDT [facility] Lymphocyte % 16.7(L) 20.0 - 44.0 % 08/19/2024 12:54 PM EDT [facility] Monocyte % 5.3 0.0 - 14.0 % 08/19/2024 12:54 PM EDT [facility] Eosinophil % 6.0(H) 0.0 - 5.0 % 08/19/2024 12:54 PM EDT [facility] Basophil % 1.0 0.0 - 2.0 % 08/19/2024 12:54 PM EDT [facility] Neutrophil # 8.66(H) 1.80 - 7.70 10*3/uL 08/19/2024 12:54 PM EDT [facility] Immature Grans # 0.03 0.00 - 0.03 10*3/uL 08/19/2024 12:54 PM EDT [facility] Lymphocyte # 2.10 1.00 - 4.75 10*3/uL 08/19/2024 12:54 PM EDT [facility] Monocyte # 0.70(H) 0.00 - 0.60 10*3/uL 08/19/2024 12:54 PM EDT [facility] Eosinophil # 0.70 0.00 - 0.80 10*3/uL 08/19/2024 12:54 PM EDT [facility] Basophil # 0.10 0.00 - 0.20 10*3/uL 08/19/2024 12:54 PM EDT [facility] nRBC % 0.0 0 - 0 /100 WBCs 08/19/2024 12:54 PM EDT [facility] nRBC # <0.01 0.00 - 0.13 10*3/uL 08/19/2024 12:54 PM EDT [facility] Blood Structure of peripheral vein / Unknown Venipuncture / Unknown 08/19/2024 12:41 PM EDT 08/19/2024 12:47 PM EDT us Magdaleno Juárez MD LAB BLOOD ORDERABLES Final Resul t [facility] [address] [facility] [address] [place] [address], [place] [phone] * Basic Metabolic Panel (08/19/2024 12:41 PM EDT) Only the most recent of2 resultswithin the time period is included. NA 140 136 - 145 mmol/L 08/19/2024 1:17 PM EDT [facility] K 4.0 3.5 - 5.1 mmol/L 08/19/2024 1:17 PM EDT [facility] Cl 104 98 - 109 mmol/L 08/19/2024 1:17 PM EDT [facility] CO2 22 22 - 32 mmol/L 08/19/2024 1:17 PM EDT [facility] BUN 9 8 - 23 mg/dL 08/19/2024 1:17 PM EDT [facility] Creatinine 0.69 0.50 - 1.12 mg/dL 08/19/2024 1:17 PM EDT [facility] Glucose 95 60 - 99 mg/dL 08/19/2024 1:17 PM EDT [facility] Calcium 9.7 8.4 - 10.4 mg/dL 08/19/2024 1:17 PM EDT [facility] Anion Gap 18 >=0 08/19/2024 1:17 PM EDT [facility] eGFR >90 >=60 mL/min/1. 73m2 08/19/2024 1:17 PM EDT [facility] Comment:The estimated glomer ular filtration rate (eGFR) is calculated using a new formula developed by the NKF-ASN task force to eliminate race-based correction factors. The new formula uses serum/plasma creatinine, age, and gender to determine eGFR. A value below 60mls/min might indicate kidney disease and will be flagged. For additional information, see Huertas et al, Am J Kidney Dis. 2021;79(2):268- 288, A Unifying Approach for GFR estimation: Recommendations of the NKF-ASN Task Force on Reassessing the Inclusion of Race in Diagnosing Kidney Disease . Blood Structure of peripheral vein / Unknown Venipuncture / Unknown 08/19/2024 12:41 PM EDT 08/19/2024 12:48 PM EDT us Magdaleno Juárez MD LAB BLOOD ORDERABLES Final Resul t Performing Organization Address [facility] Co de Phone Number [facility] [address] [address], [place] [phone] * ECG 12 lead (08/19/2024 12:33 PM EDT) Only the most recent of2 resultswithin the time period is included. Ventricular Rate EKG 84 BPM MUSE EKG Atrial Rate 84 BPM MUSE EKG KS Interval 148 ms MUSE EKG QRS Interval 98 ms MUSE EKG QT Interval 373 ms MUSE EKG QTC Interval 441 ms MUSE EKG P [place] 39 degrees MUSE EKG R [place] -5 degrees MUSE EKG T Wave [place] 21 degrees MUSE EKG 08/19/2024 12:3 3 PM EDT 08/20/2024 10:22 AM EDT Impressions MUSE EKG - 08/20/2024 10:22 AM EDT Sinus rhythm Probable left ventricular hypertrophy Poor R-wave progression Septal leads Confirmed by Andrés Meza ([id number]) on 08/20/2024 10:22:51 AM Magdaleno Juárez MD ECG ORDERABLES Final Result Performing Organization Address [facility] de Phone Number MUSE EKG * Magnesium (07/30/2024 8:58 PM EDT) Pathologist [facility] MG 1.9 1.5 - 2.5 mg/dL 07/30/2024 9:29 PM EDT [facility] Blood Structure of peripheral vein / Unknown Venipuncture / Unknown 07/30/2024 8:58 PM EDT 07/30/2024 9:06 PM EDT Yamila MITCHELL LAB BLOOD ORDERABLES Final R esult Performing Organization Address [facility] Co de Phone Number [facility] [address] [address], [place] [phone] * X-Ray Chest 2 Views (07/30/2024 8:52 [...] obtain the completed interpretation. ? Workstation ID: [id number] Narrative 07/30/2024 8:55 PM EDT COMPARISON: 07/09/2024. FINDINGS: The lungs are clear without focal consolidation, pleural effusion or pneumothorax. The cardiac silhouette and mediastinum are unremarkable. The pulmonary vasculature is within normal limits. There are no focal osseus lesions. ??There is no pneumomediastinum or subdiaphragmatic free air. Resulting Agency Comment [id number] Procedure Note Stew Butt MD - 07/30/2024 [...] possible to obtain thecompleted interpretation. Workstation ID: [id number] us Yamila MITCHELL IMG XR PROCEDURES Final Resu lt * Lipase (07/09/2024 11:32 AM EST) Lipase 31 13 - 60 U/L 07/09/2024 12:03 PM EST [facility] Blood Structure of peripheral vein / Unknown Venipuncture / Unknown 07/09/2024 11:32 AM EST 07/09/2024 11:35 AM EST us Aurelia Singleton DO LAB BLOOD ORDERABLES Final Result [facility] [address] [facility] [address] [place] [address], [place] [phone] * (ABNORMAL) CMP - Comprehensive Metabolic Panel (07/09/2024 11:32 AM EST) NA 139 136 - 145 mmol/L 07/09/2024 12:03 PM EST [facility] K 3.9 3.5 - 5.1 mmol/L 07/09/2024 12:03 PM EST [facility] Cl 101 98 - 109 mmol/L 07/09/2024 12:03 PM EST [facility] CO2 25 22 - 32 mmol/L 07/09/2024 12:03 PM EST [facility] Anion Gap 17 >=0 07/09/2024 12:03 PM EST [facility] Glucose 101(H) 60 - 99 mg/dL 07/09/2024 12:03 PM EST [facility] Creatinine 0.67 0.50 - 1.12 mg/dL 07/09/2024 12:03 PM EST [facility] Calcium 9.6 8.4 - 10.4 mg/dL 07/09/2024 12:03 PM EST [facility] Total Protein 8.2 6.6 - 8.7 g/dL 07/09/2024 12:03 PM EST [facility] Albumin 4.5 3.5 - 5.0 g/dL 07/09/2024 12:03 PM EST [facility] Bilirubin, Total 0.4 0.2 - 1.2 mg/dL 07/09/2024 12:03 PM EST [facility] Alkaline Phosphatase 48 40 - 129 U/L 07/09/2024 12:03 PM EST [facility] AST 21 0 - 33 U/L 07/09/2024 12:03 PM EST [facility] ALT 21 <=33 U/L 07/09/2024 12:03 PM EST [facility] BUN 12 8 - 23 mg/dL 07/09/2024 12:03 PM EST [facility] eGFR >90 >=60 mL/min/1. 73m2 07/09/2024 12:03 PM EST [facility] Comment:The estimated glomer ular filtration [...] - 4.2 g/dL 07/09/2024 12:03 PM EST [facility] A/G Ratio 1.2(L) 1.5 - 3.0 07/09/2024 12:03 PM EST [facility] Blood Structure of peripheral vein / Unknown Venipuncture / Unknown 07/09/2024 11:32 AM EST 07/09/2024 11:35 AM EST Aurelia Singleton DO LAB BLOOD ORDERABLES Final Result Performing Organization Address City/State/[facility] Co de Phone Number [facility] [address] [place] [address], from Last 3 Months Insurance HSNO/FREE CARE Care Teams Chemical Manager Relationship Specialty Start Date End Date Lise Decker NP [address] [address] PCP - General 07/09/24
--- OUTSIDE RECORDS SUMMARY | 2024-09-03 11:54 | XMS_ITS ---
Author Organization [facility] Address [address] [place] [address] Care Team Providers Care Supervisor Spinning Name Role Phone Rosales Hdz Primary Care [...] needed Orally Once a day Active Nystatin 415716 UNIT/ML 4 ml Mouth/Throa t Four times [...] Location Date Provider Diagnosis [facility] [address] [place] [address] 11/21/2023 Rosales Hdz Acquired hypothyroid ism E03.9 ; Mixed hyperlipidemia E78.2 ; Generalized anxiety disorder F41.1 ; Vitamin D deficiency E55.9 and Nicotine use disorder F17.200 ASSESSMENTS Encounter Date Diagnosis Assessment Notes Treatment Notes Treatment Clinical Notes 11/21/2023 Acquired hypothyroidism (ICD-10 - E03.9) 11/21/2023 Mixed hyperlipidemia (ICD-10 - E78.2) 11/21/2023 Generalized anxiety disorder (ICD-10 - F41.1) 11/21/2023 Vitamin D deficiency (ICD-10 - E55.9) 11/21/2023 Nicotine use disorder (ICD-10 - F17.200) Smoking cessation encouraged various treatment options discussed with patient. 11/21/2023 Other This chart has been transcribed by a computerized dictation system. There are likely to be multiple feed project engineer inaccuracies despite chart review. PLAN OF TREATMENT Medication Medication Name Sig Start Date Stop Date Notes Rosuvastatin Calcium 10 MG 1 tablet Orally Once a day 12/2023 Vitamin D3 50 MCG (2000 UT) 1 capsule Orally Once a day [...] system. There are likely to be multiple feed project engineer inaccuracies despite chart review. 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: PRE ASSEMBLY WIRER visit,Follow-up Progress Notes * Examination Category Sub-Category Detail Notes General Examination GENERAL APPEARANCE: in no ac sherwin distress, well developed, well nourished HEAD: normocephalic, [...]
--- OUTSIDE RECORDS SUMMARY | 2024-09-03 11:54 | XMS_ITS ---
Author Organization [facility] Address [address] [place] [address] Care Team Providers Care Senior Product Marketing Manager Name Role Phone Rosales Hdz Primary Care [...] day for 5 day(s) 08/16/2023 Active Nystatin 315238 UNIT/ML 4 ml Mouth/Throa t Four times [...] Encounter Location Date Provider Diagnosis [facility] Hussein [address] [address] 10/09/19 24 Rosales Hdz PLAN OF TREATMENT No Information
--- OUTSIDE RECORDS SUMMARY | 2024-09-03 11:54 | XMS_ITS | Clinical Summary ---
Author Organization [facility] Address [address] [place] [address] Care Team Providers Care Glass Vial Bending Conveyor Feeder Name Role Phone Unavailable Primary Care Provider Unavailabl e Allergies No known active allergies Medications * This document contains information received from the source organization and may not represent a complete record from that organization. No known medications Social History Tobacco Use Types Packs/Day Years Used Date Smoking Tobacco: Never Assessed Comments Unknown Sex and Gender Information Value Date Recorded Sex Assigned at Not on file Legal Sex Female 2:57 AM EDT Gender Identity Not on file Sexual Orientation Not on file Last Filed Vital Signs Vital Sign Reading Time Taken Comments Blood Pressure 124/86 09/23/2019 1:56 PM EDT Pulse 76 09/23/2019 1:56 PM EDT Temperature - - Respiratory Rate - - Oxygen Saturation - - Inhaled Oxygen Concentration - - Weight 60.8 kg (134 lb) 09/23/2019 1:56 PM EDT Height 162.6 cm (5' 4 ) 09/23/2019 1:56 PM EDT Body Mass Index 23 09/23/2019 1:56 PM EDT Plan of Treatment Health Maintenance Due Date Last Done Comments Hepatitis C Screening 1964 Pap Smear 1980 DTaP/Tdap/Td (1 - Tdap) 1982 Mammogram/Breast Imaging 2004 Pneumococcal 50+ years (1 of 1 - PCV) 2014 Zoster (Shingrix) (1 of 2) 2014 COVID-19 Vaccine ( - 2023-2 5 season) 2024 Influenza (#1) 2024 RSV (1 - 1-dose 75+ series) 2039 HPV Vaccine Aged Out No longer eligi ble based on patient's age to complete this topic Hep A Aged Out No longer eligi ble based on patient's age to complete this topic Hep B Aged Out No longer eligi ble based on patient's age to complete this topic Hib Aged Out No longer eligi ble based on patient's age to complete this topic Meningococcal ACWY Aged Out No longer eligible based on patient's age to complete this topic Zoster (Zostavax) Discontinued
== END 2024-09-03 10:15 | disposition home or self-care (01) ==
LOC: HO.RESP 10:14
PROVIDERS: PCP Nurse Practitioner; Visit Provider Nurse Practitioner
DX: J44.1 Chronic obstructive pulmonary disease with (acute) exacerbation (principal); R05.3 Chronic cough
CPT/HCPCS: 94010; 94640; 94727; 94729

== ENCOUNTER → 2024-09-03 10:18 | Outpatient (BNV) | payer OTHER, SELFPAY | PROVIDERS: PCP Nurse Practitioner; Visit Provider Internal Medicine Pulmonary Disease | DX: J44.1 Chronic obstructive pulmonary disease with (acute) exacerbation (principal) | CPT/HCPCS: 94060; 94727; 94729 ==

== ENCOUNTER 2024-11-25 10:14 | Outpatient (AMB) | payer OTHER, SELFPAY ==
--- OUTSIDE RECORDS SUMMARY | 2023-10-09 10:15 | XMS_ITS ---
Author Organization Andreina Hussein Address [address] [place] [address] Care Team Providers Care Belt Sewer Name Role Phone Rosales Hdz Primary Care [...] day for 5 day(s) 08/16/2023 Active Nystatin 538580 UNIT/ML 4 ml Mouth/Throa t Four times [...] Encounter Location Date Provider Diagnosis Andreina Hussein [address] [address] 10/09/19 24 Rosales Hdz PLAN OF TREATMENT No Information
--- NOTE | 2024-11-25 10:42 | A.OFFVIS_ITS ---
Vital Signs 11/25/24 10:43 Height 5 ft 4 in Weight 168 lb 6 oz BMI 28.9 BP 142/80 H Blood Pressure Location Rt brachial Position Sitting Pulse 72 Pulse Source Pulse Oximeter Pulse Oximetry (%) 98 Oxygen Delivery Method Room Air Intake Visit Reasons: COPD Allergies No Known Allergies Allergy (Verified 11/25/24 10:51) HPI HPI COPD: Details: Cindy is a pleasant 59-year-old female, former 30 pack year smoker, quit 3 years ago, presenting with respiratory symptoms for evaluation and management. The patient was recently diagnosed with asthma, which was exacerbated in April after exposure to chemical fumes from cleaning products. She experienced significant respiratory distress, requiring emergency room visits where she was treated with oxygen, nebulizers, and steroids. Her symptoms improved temporarily but have recurred over the past three weeks. She has been using Breo with suboptimal effect and continues with dyspnea and productive cough with clear to white sputum. The patient has a significant smoking history, having smoked for over 30 years before quitting three years ago. After smoking cessation she started using vaping products, which she has since discontinued and occasionally smokes marijuana, which may contribute to her respiratory symptoms. She recently underwent a PFT which revealed mild to moderate obstruction with a significant response to bronchodilators, suggestive of asthma and COPD. Her lung volumes are slightly elevated, indicating air trapping, and diffusion capacity is slightly elevated, which is atypical for COPD. The patient reports environmental exposures, including secondhand smoke during childhood and occupational exposure to bleach. She denies any known allergies but reports nasal congestion and uses Vicks inhaler for relief. [facility] Social History (Updated 11/25/24 @ 10:51 by Kathy Pelletier [facility]) Patient Tobacco Use Status: Former Tobacco user Review of Systems Const Denies chills, Denies excessive sweating, Denies fever(s), Denies headache(s) and Denies night sweats Eyes Denies dry eyes, Denies irritation and Denies itchy eyes ENT Reports Normal hearing present, Denies headache(s), Denies nasal discharge, Denies post nasal drip and Denies sore throat Card Denies chest pain, Denies chest pain at rest, Denies chest pain with activity, Denies claudication, Denies leg edema, Denies orthopnea and Denies paroxysmal nocturnal dyspnea Resp Denies chest congestion, Denies excessive phlegm production, Denies pain on inspiration, Denies pain with cough, Denies stridor and Denies wheezing Musc Denies myalgias Neuro Reports Normal hearing present and Denies headache(s) Endo Denies excessive sweating Giles/Lymph Denies lymphadenopathy Aller/Immun Denies itchy eyes, Denies seasonal rhinorrhea and Denies wheezing Physical Exam Vital Signs: Last Vital Signs Pulse 72 11/25/24 10:43 BP 142/80 H 11/25/24 10:43 Pulse Ox 98 11/25/24 10:43 Oxygen Delivery Method Room Air 11/25/24 10:43 BMI result Body Mass Index 28.9 Const General: cooperative, healthy appearing, comfortable, no acute distress, well developed and alert Orientation/consciousness: patient oriented x3 Limitations: no limitations HEENT Head: Yes normal to inspection, Yes normocephalic and Yes atraumatic Ears: hearing grossly normal bilaterally and external ears normal Eyes General: appearance normal, both eyes and all related structures Eyelids: Yes eyelids normal Sclerae: sclerae normal EOM: EOMs intact bilaterally Neck Neck: Yes normal visual inspection and Yes no lymphadenopathy Lymphatic: no lymphadenopathy noted Chest Chest palpation & inspection: normal inspection of the chest Resp Effort & Inspection: normal respiratory effort, able to speak in complete sentences, no audible wheezes, no cough, no stridor, not tachypneic, no tripod positioning and no use of accessory muscles Auscultation: diminished lung sounds Cardio Jugular venous distension: no JVD Rate: regular rate Rhythm: regular rhythm Skin Other: warm, dry General skin exam: no rashes or lesions noted Neuro General: patient oriented x3 Cranial nerves: Yes Normal hearing present Cognition (Neuro): normal cognition Gait exam (Neuro): Normal gait present Extrem General: Yes normal to inspection, Yes capillary refill normal, Yes no clubbing, cyanosis or edema and Yes no pedal edema Psych Appearance: grossly normal and well kempt Speech and movement: Normal speech and movement present and Clear speech present Affect: normal affect Attitude: cooperative Thought process: Normal thought process present Thought content: Normal thought content present Insight: Good insight present (Psych) Judgement: Good judgement present (Psych) Assessment & Plan Assessment & Plan (1) Asthma-COPD overlap syndrome: Code(s): J44.89 - Other specified chronic obstructive pulmonary disease Category: Medical (2) Environmental allergies: Code(s): Z91.09 - Other allergy status, other than to drugs and biological substances Category: Medical (3) Personal history of tobacco use: Code(s): Z87.891 - Personal history of nicotine dependence Category: Social Hx Plan Patient with likely suboptimal response to Breo 100 mcg will increase to 200 mcg to manage COPD and asthma symptoms. Consideration for switching to Trelegy if symptoms do not improve with the increased Breo dosage. Albuterol will be used as a rescue inhaler for acute symptoms, with a prescription refill provided. The patient will undergo allergy testing to identify potential environmental triggers. She recently had chest CT performed at [facility], will obtain full report an attempt to obtain images to further evaluate when repeat imaging is needed, given smoking history. All questions were answered and patient is in agreement of plan. Will follow-up in 6-8 weeks or sooner if needed. Orders: Orders Resp Allergy Profile Region I Today Z91.09 - Other allergy status, other than to drugs and biological substances Immunoglobulin E Today Z91.09 - Other allergy status, other than to drugs and biological substances Complete Blood Count Auto Diff Today Z91.09 - Other allergy status, other than to drugs and biological substances Medications: New fluticasone furoate-vilanterol 200-25 mcg/dose (Breo Ellipta) 1 inh inhalation DAILY 60 ea 3RF albuterol sulfate 90 mcg/actuation 2 puffs inhalation Q4-6H PRN 1 ea 3RF shortness of breath or wheezing Coding Level of Care Code New Pt Level 4 (65531) Diagnoses Asthma-COPD overlap syndrome J44.89 Environmental allergies Z91.09 Personal history of tobacco use Z87.891
[2024-11-25 10:43] VITALS: BP 142/80; PULSE 72; O2SAT 98; BMI 28.9
--- OUTSIDE RECORDS SUMMARY | 2024-11-25 11:20 | XMS_ITS | Clinical Summary ---
Author Organization [facility] Address [address] [place] [address] Care Team Providers Care Watch Parts Grinder Name Role Phone Pcp, None MD Primary Care Provider [phone] Medications levothyroxine (SYNTHROID, LEVOTHROID) 100 mcg tablet [...] Recombinant ) Vaccine (1 of 2) 2014 CoVid-19 Vaccine (2023-2 5 season) 2024 Influenza (Seasonal) 12/12/2024 HIB Vaccines Aged Out No longer eligi [...] patient's age to complete this topic Insurance [facility] Care Teams Watch Parts Grinder Relationship Specialty Start Date End Date Pcp, MD Nasreen [address] [place] [address] PCP - General Internal Medicine 06/13/22
--- OUTSIDE RECORDS SUMMARY | 2024-11-25 11:20 | XMS_ITS | Patient Health Record ---
Author Organization [facility] Address [address] [place] [address] Care Team Providers Care Public Health Staff Nurse Name Role Phone Rosales Hdz Primary Care Provider ALLERGIES No Known Allergies REASON FOR REFERRAL No Information MEDICATIONS Medication [...] needed Orally Once a day Active Nystatin 259732 UNIT/ML 4 ml Mouth/Throa t Four times [...] Problem Vitamin D deficiency (E55.9) Active confirmed 91025156 Problem Generalized anxiety disorder (F41.1) Active confirmed 49948615 Problem Mixed hyperlipidemia (E78.2) Active confirmed 953142157 Problem Acquired hypothyroidism (E03.9) Active confirmed 948299552 Problem Nicotine use disorder (F17.200) Active confirmed 34169026 PLAN OF TREATMENT Pending Test Test Name Order Date HEPATIC FUNCTION PANEL 06/21/2023 LIPID PANEL 06/21/2023 Insurance Providers Payer Name Payer Address Payer Phone Subscriber Number Group Number Insured Name Patient Relationship to Insured Coverage Start Date Coverage End Date [facility] [place] [place] [address] [place] [address] Cindy Valenzuela Self - patient is the insured MEDICAL (GENERAL) HISTORY Medical History History ICD Code Acquired hypothyroidism E03.9 Generalized anxiety disorder F41.1 Nicotine use disorder F17.200 Surgical History Surgery Date(Month/Year) Partial Hysterectomy 2004 Appendectomy 2009 Hospitalization History Reason Date(Month/Year) For above procedures
--- OUTSIDE RECORDS SUMMARY | 2024-11-25 11:20 | XMS_ITS | Referral Summary ---
Author Organization [facility] Address [address] [place] [address] Care Team Providers Care Driver Utility Worker Name Role Phone Lise Decker [place] Primary Care Provider [phone] Allergies No known active allergies Medications Ventolin [...] once a day. 10 tablet 5 Active Social History Tobacco Use Types Packs/Day [...] 86 08/19/2024 3:14 PM EDT Temperature 36.6 C (97.8 F) 08/19/2024 12:31 PM EDT Respiratory Rate 22 08/19/2024 12:31 PM EDT Oxygen Saturation 94% 08/19/2024 3:14 PM EDT Inhaled Oxygen Concentration - - Weight 77.1 kg (170 lb) 08/19/2024 12:31 PM EDT Height 162.6 cm (5' 4 ) 08/19/2024 12:31 PM EDT Body Mass Index 29.18 08/19/2024 12:31 PM EDT Plan of Treatment Not on file Procedures * Due to [place] law, this organization might not be sharing negative HIV tests. Procedure Name Priority Date/Time Associated Diagnosis Comments CT CHEST PULMONARY EMBOLISM W CONTRAST STAT 08/19/2024 3:51 PM EDT from Last 3 Months or Most Recently Relevant to Health Maintenance Results * Due to [place] law, this organization might not be sharing negative HIV tests. * CT Chest Pulmonary Embolism W Contrast (08/19/2024 3:51 PM EDT) Anatomical Region Laterality Modality Body Computed Tomogra phy 08/19/2024 4:56 PM EDT Impressions 08/19/2024 5:22 PM EDT 1. No evidence of pulmonary embolism. 2. No acute abnormality in the chest. 3. Background mild mixed centrilobular and paraseptal emphysema. I, Lise Rizo, have reviewed the examination and concur with the findings as reported or so edited. Trainee: Otoniel Hodges If this radiology report contains a blank impression section, it is an incomplete radiology report. Please contact the interpreting radiologist or applicable radiology division as soon as possible to obtain the completed interpretation. Workstation ID: [id number] Up-to-date CT equipment and radiation dose reduction techniques were employed. CTDIvol: .8 - 17.0 mGy. DLP: 495 mGy-cm. Narrative 08/19/2024 5:22 PM EDT COMPARISON: CT chest 05/15/2024 FINDINGS: Exam limited by respiratory motion artifact. Pulmonary arteries: The pulmonary arteries are normal in caliber without intraluminal filling defects to indicate pulmonary embolism. Lower neck: Unremarkable. Lungs and Airways: The central airways are patent. Bilateral lower lobe bronchial wall thickening and irregularity. Background mild mixed emphysema. There is no consolidation or septal thickening. Dependent atelectasis. Pleura: There is no pleural effusion or pneumothorax. Heart and Mediastinum: Heart size is normal. There is no pericardial effusion. The thoracic aorta is normal in caliber without evidence of dissection. No mediastinal or hilar lymphadenopathy. Patulous esophagus. Small hiatal hernia. Upper Abdomen: Limited evaluation of the upper abdomen is unremarkable. Bones and Soft Tissues: There are no suspicious osseous lesions. No acute osseous or soft tissue abnormality. Resulting Agency Comment [id number] Procedure Note Lise Rizo MD PhD - [...] possible to obtain thecompleted interpretation. Workstation ID: [id number] Up-to-date CT equipment and radiation dose reduction techniques wereemployed. CTDIvol: .8 - 17.0 mGy. DLP: 495 mGy-cm. Brittney MITCHELL IMG CT PROCEDURES Final Resul t from Last 3 Months or Most Recently Relevant to Health Maintenance Insurance HSNO/FREE CARE Care Teams Driver Utility Worker Relationship Specialty Start Date End Date Lise Decker NP [address] [address] PCP - General 07/09/24
--- OUTSIDE RECORDS SUMMARY | 2024-11-25 11:20 | XMS_ITS | Clinical Summary ---
Author Organization [facility] Address [address] [place] [address] Care Team Providers Care Floor Winder Name Role Phone Unavailable Primary Care Provider [...] - 2023-2 5 season) 2024 Influenza (#1) 2025 RSV (1 - 1-dose 75+ series) 2039 [...]
== END 2024-11-25 11:24 | disposition home or self-care (01) ==
PROVIDERS: PCP Nurse Practitioner; Visit Provider Nurse Practitioner Family
DX: J44.89 Other specified chronic obstructive pulmonary disease (principal); Z91.09 Other allergy status, other than to drugs and biological substances; Z87.891 Personal history of nicotine dependence
CPT/HCPCS: 99204

== ENCOUNTER → 2024-11-25 10:14 | Outpatient (BNVA) | payer OTHER, SELFPAY | PROVIDERS: PCP Nurse Practitioner; Visit Provider Nurse Practitioner Family | DX: J44.89 Other specified chronic obstructive pulmonary disease (principal); Z91.09 Other allergy status, other than to drugs and biological substances; Z87.891 Personal history of nicotine dependence | CPT/HCPCS: 36415; 82785; 85025; 86003; 99202 ==

== ENCOUNTER 2024-11-25 11:40 | Outpatient (REF) | payer OTHER, SELFPAY ==
[2024-11-25 14:43] LABS: MANUAL DIFF FLAG NO
[2024-11-25 14:52] LABS: Hematocrit 43.4 % (37.0-47.0); Hemoglobin 14.8 g/dl (12.0-16.0); Imm Gran Abs Auto 0.03 X10*3/uL (0.00-0.03); Imm Gran Pct Auto 0.4 % (0.0-0.4); Lymphocytes Absolute Auto 2.6 X10*3/uL (1.2-4.9); Mean Corpuscular HGB Conc 34.1 g/dl (31.0-35.0); Mean Corpuscular Hemoglobin 30.5 pg (27.0-33.0); Mean Corpuscular Volume 89.5 fL (80.0-98.0); NRBC Abs Auto 0.000 X10*3/uL (0.0-0.012); NRBC Pct Auto 0.0 /100WBC (0.0-0.2); Platelet Count 325 X10*3/uL (160-400); Red Blood Count 4.85 X10*6/uL (4.20-5.50); White Blood Count 7.2 X10*3/uL (4.8-10.8)
[2024-11-27 22:52] LABS: Class Alternaria alternata 0; Class Aspergillus fumigatus 0; Class Bermuda Grass 0/1; Class Birch 0; Class Cat Dander 0; Class Cladosporium herbarum 0; Class Cockroach 1; Class Common Ragweed 0/1; Class Cottonwood 0/1; Class Derm. pterony 1; Class Dermatophagoides farinae 1; Class Dog Dander 0; Class Elm 0/1; Class Maple Box Elder 0/1; Class Mountain Cedar 0; Class Mouse Urine Protein 0; Class Mugwort 0/1; Class Oak 0/1; Class Penicillium crysogenum 0; Class Rough Pigweed 0/1; Class Sheep Sorrel 0/1; Class Sycamore 0/1; Class Timothy Grass 0/1; Class Walnut Tree 0/1; Class White Ash 0/1; Class White Mulberry 0; D002 - IgE D farinae 0.53 kU/L; E001 - IgE Cat Dander <0.10 kU/L; E005 - IgE Dog Dander <0.10 kU/L; G006 - IgE Timothy Grass 0.16 kU/L; I006-IgE Cockroach, German 0.51 kU/L; M002 - IgE Cladosporium herbar <0.10 kU/L; M003 - IgE Aspergillus fumigat <0.10 kU/L; M006 - IgE Alternaria alternat <0.10 kU/L; T001 IgE Maple/Box Elder 0.17 kU/L; T006 - IgE Cedar, Mountain <0.10 kU/L; T007 - IgE Oak, White 0.15 kU/L; T008 IgE Elm, American 0.19 kU/L; T010 - IgE Walnut 0.15 kU/L; T011 - IgE Maple Leaf Sycamore 0.13 kU/L; T014 - IgE Cottonwood 0.19 kU/L; T015 - IgE Ash, White 0.16 kU/L; T070 - IgE White Mulberry <0.10 kU/L; W001 - IgE Ragweed, Short 0.23 kU/L; W006 - IgE Mugwort 0.12 kU/L; W014 IgE Pigweed, Common 0.11 kU/L; W018 IgE Sheep Sorrel 0.17 kU/L
== END 2024-11-25 11:41 | disposition home or self-care (01) ==
LOC: HO.WFDLDS 11:40
PROVIDERS: Visit Provider Nurse Practitioner Family
DX: Z13.89 Encounter for screening for other disorder (principal)
CPT/HCPCS: 36415; 82785; 85025; 86003

== ENCOUNTER 2025-01-28 08:50 | Outpatient (AMB) | payer OTHER, SELFPAY ==
--- OUTSIDE RECORDS SUMMARY | 2023-08-16 05:45 | XMS_ITS ---
Author Organization Andreina Hussein Address [address] [place] [address] Care Team Providers Care B Operator Name Role Phone Rosales Hdz Primary Care Provider [phone] ALLERGIES No Known Allergies REASON FOR VISIT (IN OFFICE), Sick Visit MEDICATIONS Medication SIG (Take, Route, Frequency, Duration) Notes Start Date End Date Status LORazepam 1 MG 1 tablet at bedtime as needed Orally Once a day Active Levothyroxine Sodium 100 MCG 1 tablet in the morning on an empty stomach Orally Once a day Active Azithromycin 250 MG 2 tablets on the , then 1 tablet daily for 4 days Orally Once a day for 5 day(s) 08/16/2023 Active Nystatin 886801 UNIT/ML 4 ml Mouth/Throa t Four times a day for 14 day(s) 07/23/2023 Active Vitamin D3 50 MCG (1999 UT) 1 capsule Or ally Once a day for 90 Days 06/21/2023 Active Rosuvastatin Calcium 10 MG 1 tablet Oral ly Once a day for 30 day(s) 06/21/2023 Active Mucinex 600 MG 1 tablet as needed Orally every 12 hrs for 10 days 08/16/2023 Active Benzonatate 200 MG 1 capsule Orally Thr ee times a day for 10 days 08/16/2023 Active SOCIAL HISTORY Tobacco Use: Social History Observation Description Date Details (start date - stop date) Current Smoker NA - NA Sex Assigned At : Social History Observation Description Sex Assigned At Unknown Tobacco Use/Smoking Question Answer Notes Are you a current smoker Alcohol Screen Question Answer Notes Did you have a drink contain ing alcohol in the past year? Yes How often did you have a dri nk containing alcohol in the past year? Monthly or less (1 point) Points 1 Interpretation Negative VITAL SIGNS Blood pressure systolic 120 mm Hg 08/16/19 24 Blood pressure diastolic 76 mm Hg 024 Heart Rate 76 /min 08/16/2023 Height 64 in 08/16/2023 Weight 158.2 lbs 08/16/2023 BMI 27.15 kg/m2 08/16/2023 Encounters Encounter Location Date Provider Diagnosis Andreina Hussein, [address] [place] [address] 08/16/2023 Rosales Hdz Acute URI J06.9 and Productive cough R05.8 ASSESSMENTS Encounter Date Diagnosis Assessment Notes Treatment Notes Treatment Clinical Notes Section Notes 08/16/2023 Acute URI (ICD-10 - J06.9) 08/16/2023 Productive cough (ICD-10 - R05.8) 08/16/2023 Other This chart has been transcribed by a computerized dictation system. There are likely to be multiple measurement and verification engineer inaccuracies despite chart review. PLAN OF TREATMENT Medication Medication Name Sig Start Date Stop Date Notes Azithromycin 250 MG 2 tablets on the day, then 1 tablet daily for 4 days Orally Once a day for 5 day(s) 08/16/2023 Mucinex 600 MG 1 tablet as needed O rally every 12 hrs for 10 days 08/16/2023 Benzonatate 200 MG 1 capsule Orally Thr ee times a day for 10 days 08/16/2023 Treatment Notes Assessment Notes Other This chart has been transcribed by a computerized dictation system. There are likely to be multiple measurement and verification engineer inaccuracies despite chart review. 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 Progress Notes * Examination Category Sub-Category Detail Notes Category Not es General Examination GENERAL APPEARANCE: in no ac [place] distress, well developed, well nourished EYES: No pallor, sclera no n-icteric NOSE: Normal THROAT: clear NECK/THYROID: neck supple, full ra nge of motion, no cervical lymphadenopathy HEART: no murmurs, regular rate and rhythm, S1, S2 normal LUNGS: clear to auscultatio n bilaterally SKIN: no suspicious lesion s, warm and dry LYMPH NODES: no palpable adenopat hy PSYCH: alert, oriented, cog nitive function intact, mood/affect full range ORAL CAVITY: mucosa moist History and Physical Notes * HPI (History of Present Illness) Category Sub-Category Detail Notes Category Not es Symptom(s) 58-year-old fem renny patient with history of hypothyroidism, generalized anxiety disorder, nicotine use disorder, is here complaining of cough, congestion, generalized fatigue, for the past 7-10 days. Symptoms have not responded to [id number] medications. There is no history of sick contact. She is compliant with her regular medications without any side effects. Her chronic conditions are well controlled.
--- OUTSIDE RECORDS SUMMARY | 2023-09-10 10:14 | XMS_ITS ---
[facility] Address [address] [place] [address] Care Team Providers Care Veterinary Anatomist Name Role Phone Rosales Hdz Primary Care Provider [phone] REASON FOR VISIT Refills MEDICATIONS Medication SIG (Take, Route, Frequency, Duration) Notes Start Date End Date Status LORazepam 1 MG 1 tablet Orally Thre e times a day for 30 days 09/10/2023 Active Levothyroxine Sodium 100 MCG 1 tablet in the morning on an empty stomach Orally Once a day for 30 days Active Encounters Encounter Location Date Provider Diagnosis sofya [address] [address] 09/10/2023 Rosales Hdz Generalized anxiety disorder F41.1 and Acquired hypothyroidism E03.9 ASSESSMENTS Encounter Date Diagnosis Assessment Notes Treatment Notes Treatment Clinical Notes Section Notes 09/10/2023 Generalized anxiety disorder (ICD-10 - F41.1) 09/10/2023 Acquired hypothyroidism (ICD-10 - E03.9) PLAN OF TREATMENT Medication Medication Name Sig Start Date Stop Date Notes LORazepam 1 MG 1 tablet Orally Thre e times a day for 30 days 09/10/2023 Levothyroxine Sodium 100 MCG 1 tablet in the morning on an empty stomach Orally Once a day for 30 days
--- OUTSIDE RECORDS SUMMARY | 2023-09-19 10:15 | XMS_ITS ---
Author Organization Andreina Hussein Address [address] [place] [address] Care Team Providers Care Retort Fireman Name Role Phone Rosales Hdz Primary Care Provider [phone] REASON FOR VISIT (IN OFFICE), Follow Up Encounters Encounter Location Date Provider Diagnosis Andreina Hussein [address] [address] 09/19/19 24 Rosales Hdz PLAN OF TREATMENT No Information
--- OUTSIDE RECORDS SUMMARY | 2023-10-09 10:15 | XMS_ITS ---
Author Organization Andreina Hussein Address [address] [place] [address] Care Team Providers Care Set Up Mold Technician Name Role Phone Rosales Hdz Primary Care Provider REASON FOR VISIT (IN OFFICE), Follow Up MEDICATIONS Medication SIG (Take, Route, Frequency, Duration) Notes Start Date End Date Status Benzonatate 200 MG 1 capsule Orally Thr ee times a day for 10 days 08/16/2023 Active Mucinex 600 MG 1 tablet as needed Orally every 12 hrs for 10 days 08/16/2023 Active Azithromycin 250 MG 2 tablets on the , then 1 tablet daily for 4 days Orally Once a day for 5 day(s) 08/16/2023 Active Nystatin 612745 UNIT/ML 4 ml Mouth/Throa t Four times a day for 14 day(s) 07/23/2023 Active Vitamin D3 50 MCG (1999 UT) 1 capsule Or ally Once a day for 90 Days 06/21/2023 Active Rosuvastatin Calcium 10 MG 1 tablet Oral ly Once a day for 30 day(s) 06/21/2023 Active Levothyroxine Sodium 100 MCG 1 tablet in the morning on an empty stomach Orally Once a day for 30 days Active LORazepam 1 MG 1 tablet Orally Thre e times a day for 30 days 09/10/2023 Active Encounters Encounter Location Date Provider Diagnosis Andreina Hussein [address] [address] 10/09/19 24 Rosales Hdz PLAN OF TREATMENT No Information
--- OUTSIDE RECORDS SUMMARY | 2023-11-21 11:00 | XMS_ITS ---
Author Organization Andreina Hussein Address [address] [place] [address] Care Team Providers Care Rotor Assembler Name Role Phone Rosales Hdz Primary Care Provider REASON FOR VISIT (IN OFFICE), Follow Up MEDICATIONS Medication SIG (Take, Route, Frequency, Duration) Notes Start Date End Date Status Rosuvastatin Calcium 10 MG 1 tablet Oral ly Once a day 06/21/2023 Active Vitamin D3 50 MCG (1999) 1 capsule Or ally Once a day 06/21/2023 Active LORazepam 1 MG TAKE ONE TABLET BY M OUTH THREE TIMES A DAY for 30 11/10/2023 Active LORazepam 1 MG 1 tablet at bedtime as needed Orally Once a day Active Nystatin 064568 UNIT/ML 4 ml Mouth/Throa t Four times a day for 14 day(s) 07/23/2023 Active Levothyroxine Sodium 100 MCG 1 tablet in the morning on an empty stomach Orally Once a day Active SOCIAL HISTORY Tobacco Use: Social History Observation Description Date Details (start date - stop date) Current Smoker NA - NA Sex Assigned At : Social History Observation Description Sex Assigned At Unknown Tobacco Use/Smoking Question Answer Notes Are you a current smoker VITAL SIGNS Blood pressure systolic 100 mm Hg 11/21/19 24 Blood pressure diastolic 70 mm Hg 024 Heart Rate 72 /min 11/21/2023 Height 64 in 11/21/2023 Weight 152 lbs 11/21/2023 BMI 26.09 kg/m2 11/21/2023 Encounters Encounter Location Date Provider Diagnosis Andreina Hussein [address] [place] [address] 11/21/2023 Rosales Hdz Acquired hypothyroid ism E03.9 ; Mixed hyperlipidemia E78.2 ; Generalized anxiety disorder F41.1 ; Vitamin D deficiency E55.9 and Nicotine use disorder F17.200 ASSESSMENTS Encounter Date Diagnosis Assessment Notes Treatment Notes Treatment Clinical Notes Section Notes 11/21/2023 Acquired hypothyroidism (ICD-10 - E03.9) 11/21/2023 Mixed hyperlipidemia (ICD-10 - E78.2) 11/21/2023 Generalized anxiety disorder (ICD-10 - F41.1) 11/21/2023 Vitamin D deficiency (ICD-10 - E55.9) 11/21/2023 Nicotine use disorder (ICD-10 - F17.200) Smoking cessation encouraged various treatment options discussed with patient. 11/21/2023 Other This chart has been transcribed by a computerized dictation system. There are likely to be multiple rn icu inaccuracies despite chart review. PLAN OF TREATMENT Medication Medication Name Sig Start Date Stop Date Notes Rosuvastatin Calcium 10 MG 1 tablet Orally Once a day 12/2023 Vitamin D3 50 MCG (1999 UT) 1 capsule Orally Once a day LORazepam 1 MG 1 tablet at bedtime as needed Orally Once a day Levothyroxine Sodium 100 MCG 1 tablet in the morning on an empty stomach Orally Once a day Treatment Notes Assessment Notes Nicotine use disorder Smoking cessation encouraged various treatment options discussed with patient. Other This chart has been transcribed by a computerized dictation system. There are likely to be multiple rn icu inaccuracies despite chart review. 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,Follow-up Progress Notes * Examination Category Sub-Category Detail Notes Category Not es General Examination GENERAL APPEARANCE: in no ac [place] distress, well developed, well nourished HEAD: normocephalic, atrau matic EYES: pupils equal, round, reactive to light and accommodation THROAT: clear, no erythema, uvula midline, no exudate NECK/THYROID: neck supple, no thyr omegaly, trachea midline, no carotid bruit HEART: no murmurs, regular rate and rhythm, S1, S2 normal LUNGS: clear to auscultatio n bilaterally ABDOMEN: soft, nontender, non distended, no organomegaly , bowel sounds present NEUROLOGIC: alert and oriented x 3, nonfocal SKIN: no suspicious lesion s, warm and dry EXTREMITIES: no clubbing, cyanosi s, or edema PERIPHERAL PULSES: normal, 2+ throughou t MUSCULOSKELETAL: normal, full range o f motion LYMPH NODES: no cervical, axillar y, supraclavicular or inguinal adenopathy PSYCH: cognitive function i ntact, mood/affect full range ORAL CAVITY: mucosa moist, no les ions, palate normal, tongue in midline, well papillated History and Physical Notes * HPI (History of Present Illness) Category Sub-Category Detail Notes Category Not es Symptom(s) 58-year-old fem renny patient with history of hyperlipidemia, hypothyroidism, generalized anxiety disorder, nicotine use disorder, is here for follow-up. I discussed her lab results with her during the visit which will good control of her hyperlipidemia on current dose of Crestor. Patient appears clinically euthyroid on current dose of levothyroxine. She has canceled multiple appointments in the past. I encouraged her to be more compliant. Her generalized anxiety disorder responsible to lorazepam when necessary basis.
[2025-01-28 09:04] VITALS: BP 172/108; PULSE 79; O2SAT 96
--- NOTE | 2025-01-28 09:04 | A.OFFVIS_ITS ---
Vital Signs 01/28/25 09:04 Height 5 ft 4 in Weight 175 lb BMI 30.0 BP 172/108 H Blood Pressure Location Lt brachial Position Sitting Pulse 79 Pulse Source Pulse Oximeter Pulse Oximetry (%) 96 Oxygen Delivery Method Room Air Intake Visit Reasons: COPD Allergies No Known Allergies Allergy (Verified 01/28/25 09:08) Medication List - Last Reconciled 01/28/25 by aPyal Stinson NP albuterol sulfate 90 mcg/actuation 2 puffs inhalation Q4-6H PRN ejpletgwqf-oklqytno-oooilismjo 160-9-4.8 mcg/actuation (Breztri Aerosphere) 2 inhalations inhalation BID doxycycline hyclate 100 mg PO BID ipratropium-albuterol 0.5 mg-3 mg(2.5 mg base)/3 mL 3 mL inhalation Q6-8H PRN levothyroxine (Levo-T) 112 mcg PO DAILY lorazepam 1 mg PO TID PRN HPI HPI COPD: Details: Cindy is a pleasant 59-year-old female, former 30 pack year smoker, quit 3 years ago, with underlying asthma COPD overlap syndrome. The patient was diagnosed with asthma last year which was exacerbated in April after exposure to chemical fumes from cleaning products. She experienced significant respiratory distress, requiring emergency room visits where she was treated with oxygen, nebulizers, and steroids. Her symptoms improved temporarily but have recurred and have persisted since October. She was using Breo with suboptimal effect, switched to Trelegy however has not had any changes and also notes difficulty tolerating DPI. She continues with wheezing, harsh productive cough and significant dyspnea on exertion. She previously reports prednisone use on several occasions without significant benefit. She notes during her hospital stay in August received antibiotics which resulted in resolution of symptoms. She has been using DuoNeb BID in addition to albuterol MDI multiple times per day with mild improvement. She denies any visits to urgent care or hospitalizations since the last visit. Today she presents to review RAST results. [facility] Social History (Reviewed 01/28/25 @ 09:08 by Kathy Pelletier [facility]) Patient Tobacco Use Status: Former Tobacco user Review of Systems Const Denies chills, Denies excessive sweating, Denies fever(s), Denies headache(s) and Denies night sweats Eyes Denies dry eyes, Denies irritation and Denies itchy eyes ENT Reports Normal hearing present, Denies headache(s), Denies nasal discharge, Denies post nasal drip and Denies sore throat Card Denies chest pain, Denies chest pain at rest, Denies chest pain with activity, Denies claudication, Denies leg edema, Reports dyspnea on exertion, Denies orthopnea and Denies paroxysmal nocturnal dyspnea Resp Denies chest congestion, Reports cough, Denies hemoptysis, Reports excessive phlegm production, Denies pain on inspiration, Denies pain with cough, Reports dyspnea on exertion, Denies stridor and Reports wheezing Musc Denies myalgias Neuro Reports Normal hearing present and Denies headache(s) Endo Denies excessive sweating Giles/Lymph Denies lymphadenopathy Aller/Immun Denies itchy eyes, Denies seasonal rhinorrhea and Reports wheezing Physical Exam Vital Signs: Last Vital Signs Pulse 79 01/28/25 09:04 BP 172/108 H 01/28/25 09:04 Pulse Ox 96 01/28/25 09:04 Oxygen Delivery Method Room Air 01/28/25 09:04 BMI result Body Mass Index 30.0 Const General: cooperative, healthy appearing, comfortable, no acute distress, well developed and alert Orientation/consciousness: patient oriented x3 Limitations: no limitations HEENT Head: Yes normal to inspection, Yes normocephalic and Yes atraumatic Ears: hearing grossly normal bilaterally and external ears normal Eyes General: appearance normal, both eyes and all related structures Eyelids: Yes eyelids normal Sclerae: sclerae normal EOM: EOMs intact bilaterally Neck Neck: Yes normal visual inspection and Yes no lymphadenopathy Lymphatic: no lymphadenopathy noted Chest Chest palpation & inspection: normal inspection of the chest Resp Effort & Inspection: normal respiratory effort, able to speak in complete sentences, no audible wheezes, Actively coughing Quality: productive, no stridor, not tachypneic, no tripod positioning and no use of accessory muscles Auscultation: diminished lung sounds Cardio Jugular venous distension: no JVD Rate: regular rate Rhythm: regular rhythm Skin Other: warm, dry General skin exam: no rashes or lesions noted Neuro General: patient oriented x3 Cranial nerves: Yes Normal hearing present Cognition (Neuro): normal cognition Gait exam (Neuro): Normal gait present Extrem General: Yes normal to inspection, Yes capillary refill normal, Yes no clubbing, cyanosis or edema and Yes no pedal edema Psych Appearance: grossly normal and well kempt Speech and movement: Normal speech and movement present and Clear speech present Affect: normal affect Attitude: cooperative Thought process: Normal thought process present Thought content: Normal thought content present Insight: Good insight present (Psych) Judgement: Good judgement present (Psych) Assessment & Plan Assessment & Plan (1) Asthma-COPD overlap syndrome: Code(s): J44.89 - Other specified chronic obstructive pulmonary disease Category: Medical (2) Environmental allergies: Code(s): Z91.09 - Other allergy status, other than to drugs and biological substances Category: Medical (3) Personal history of tobacco use: Code(s): Z87.891 - Personal history of nicotine dependence Category: Social Hx (4) Ground glass opacity present on imaging of lung: Code(s): R91.8 - Other nonspecific abnormal finding of lung field Category: Medical Plan Will treat bronchitic symptoms with doxycycline. Will hold off on prednisone at this time as patient reports upwards of 7 courses since the start of her symptoms with no significant improvement. May need to consider sputum culture. Patient aware to call if symptoms do not improve. She reported suboptimal response to Breo and was switched to Trelegy however continues to report poor response as well as inability to tolerate dry powder inhaler. Will trial Breztri. Discussed importance of good oral hygiene to prevent thrush. Encourage patient to use nebulized therapy p.r.n.. Reviewed chest CT from August 2024 which reveals some mild ground-glass opacities, will repeat to assess for resolution. Reviewed RAST which revealed multiple environmental allergies. Discussed ways to minimize allergen exposures and encouraged daily use of antihistamine. At today's visit patient's blood pressure is significantly elevated repeated pressure continued to be elevated at 160/100. At this time asymptomatic however discussed importance of following up with primary care, previously on antihypertensive however had discontinued about a year ago. All questions were answered and patient is in agreement of plan. Will follow-up in 6-8 weeks or sooner if needed. Orders: Orders CT chest wo IV con Today R91.8 - Other nonspecific abnormal finding of lung field Medications: New doxycycline hyclate 100 mg PO BID 14 caps 0RF cslntpeadg-vmkcniln-glgyaiidre 160-9-4.8 mcg/actuation (Breztri Aerosphere) 2 inhalations inhalation BID 10.7 grams 3RF Discontinued iginuxupyko-qkrrrrotd-oyyqbyyz 200-62.5-25 mcg (Trelegy Ellipta) Discontinued Reason: Patient Completed Course 1 inh inhalation DAILY 60 ea 3RF Coding Level of Care Code Est Pt Level 4 (16163) Diagnoses Asthma-COPD overlap syndrome J44.89 Environmental allergies Z91.09 Personal history of tobacco use Z87.891 Ground glass opacity present on imaging of lung R91.8
--- OUTSIDE RECORDS SUMMARY | 2025-01-28 10:22 | XMS_ITS | Clinical Summary ---
Author Organization [facility] Address [address] [address] Care Team Providers Care Flexible Babysitter Name Role Phone Pcp, None MD Primary Care Provider [phone] Medications levothyroxine (SYNTHROID, LEVOTHROID) 100 mcg tablet [...] Vaccine (1 of 2) 2014 Influenza (Seasonal) 12/12/2024 CoVid-19 Vaccine (2023-2 5 season) 2025 HIB Vaccines Aged Out No longer eligi [...] patient's age to complete this topic Insurance [facility] STAND[facility] Care Teams Flexible Babysitter Relationship Specialty Start Date End Date Pcp, MD Nasreen [address] [place] [address] PCP - General Internal Medicine 06/13/22
--- OUTSIDE RECORDS SUMMARY | 2025-01-28 10:22 | XMS_ITS | Clinical Summary ---
Author Organization [facility] Address [address] [place] [address] Care Team Providers Care Applications Analyst Name Role Phone Lise Decker LAWRENCE Primary Care Provider [phone] Allergies No known active allergies Medications Ventolin [...] 2004 Zoster Vaccines (1 of 2) 2014 RSV Vaccine (60+ years old and patients) (1 - Risk 60-74 years 1-dose series) 2024 Alcohol/Substance Use Screening 05/14/2024 Depression Screening and Follow-Up 05/14/2024 Social Drivers of Health Annual Screening 05/14/2024 COVID-19 Vaccine ( season) 2025 02/03/2022, 04/22/2021, 06/10/2020, Additional history exists Influenza Vaccine (#1) 2025 , 02/07/2017, 04/11/2016 CT Lung Cancer Screening (12 months, previous LungRADS 1 or 2) 08/19/2025 08/19/2024, 05/15/2024 Diabetes Screening 08/20/2027 08/19/2024, 0 07/30/2024, 07/09/2024 Hepatitis B Vaccines Aged Out No long er eligible based on patient's age to complete this topic Procedures * Due to [place] state law, this organization might not be sharing negative HIV tests. Procedure Name Priority Date/Time Associated Diagnosis Comments CT CHEST PULMONARY EMBOLISM W CONTRAST STAT 08/19/2024 3:51 PM EDT BASIC METABOLIC PANEL STAT 08/19/2024 12:41 PM EDT from Last 3 Months or Most Recently Relevant to Health Maintenance Results * Due to [place] state law, this organization might not be [...] to obtain the completed interpretation. Workstation ID: [id number] Up-to-date CT equipment and radiation dose reduction [...] or soft tissue abnormality. Resulting Agency Comment [id number] Procedure Note Lise Rizo MD PhD - [...] possible to obtain thecompleted interpretation. Workstation ID: [id number] Up-to-date CT equipment and radiation dose reduction techniques wereemployed. CTDIvol: .8 - 17.0 mGy. DLP: 495 mGy-cm. us Brittney MITCHELL IMG CT PROCEDURES Final Resul t * Basic Metabolic Panel (08/19/2024 12:41 PM EDT) NA 140 136 - 145 mmol/L 08/19/2024 1:17 PM EDT [facility] K 4.0 3.5 - 5.1 mmol/L 08/19/2024 1:17 PM EDT [facility] Cl 104 98 - 109 mmol/L 08/19/2024 1:17 PM EDT [facility] CO2 22 22 - 32 mmol/L 08/19/2024 1:17 PM EDT [facility] BUN 9 8 - 23 mg/dL 08/19/2024 1:17 PM EDT [facility] Creatinine 0.69 0.50 - 1.12 mg/dL 08/19/2024 1:17 PM EDT [facility] Glucose 95 60 - 99 mg/dL 08/19/2024 1:17 PM EDT [facility] Calcium 9.7 8.4 - 10.4 mg/dL 08/19/2024 1:17 PM EDT [facility] Anion Gap 18 >=0 08/19/2024 1:17 PM EDT [facility] eGFR >90 >=60 mL/min/1. 73m2 08/19/2024 1:17 PM EDT [facility] Comment:The estimated glomer ular filtration [...] MD LAB BLOOD ORDERABLES Final Resul t [facility] [address] [place] [address], [place] [phone] from Last 3 Months or Most Recently Relevant to Health Maintenance Insurance HSNO/FREE CARE Care Teams Applications Analyst Relationship Specialty Start Date End Date Lise Decker NP [address] [address] PCP - General 07/09/24
--- OUTSIDE RECORDS SUMMARY | 2025-01-28 10:22 | XMS_ITS | Clinical Summary ---
Author Organization [facility] Address [address] [place] [address] Care Team Providers Care Aerial Hurricane Hunter Name Role Phone Unavailable Primary Care Provider [...] COVID-19 Vaccine ( - 2023-2 5 season) 2025 Influenza (#1) 2025 RSV (1 - 1-dose 75+ series) 2039 HPV Vaccine (No Doses Required) Completed Hep A Aged Out No longer eligi [...]
--- OUTSIDE RECORDS SUMMARY | 2025-01-28 10:23 | XMS_ITS | Encounter Summary ---
Author Organization [facility] Address [address] [place] [address] Care Team Providers Care Recruiting Internship Name Role Phone Lise Decker LAWRENCE Primary Care Provider [phone] Encounter Details Date Type Department Care Team (Late st Contact Info) Description 04/25/2024 Orders Only [facility] [address] [place] [address] Linda Kaufman Social History Tobacco Use Types [...] PM EDT R/O Respiratory Virus Infection 08/19/2024 08/19/2024 1:32 PM EDT R/O Influenza 08/19/2024 08/19/2024 08/19/2024 1: 32 PM EDT COVID-19 - Suspected infection 08/19/2024 08/19/2024 08/19/2024 1:32 PM EDT documented as of this encounter Care Teams Recruiting Internship Relationship Specialty Start Date End Date Lise Decker NP [address] [address] PCP - General 07/09/24 documented as of this encounter
--- OUTSIDE RECORDS SUMMARY | 2025-01-28 10:23 | XMS_ITS | Patient Health Record ---
Author Organization [facility] Address [address] [place] [address] Care Team Providers Care Acute Care Nursing Assistant Name Role Phone Rosales Hdz Primary Care [...] needed Orally Once a day Active Nystatin 831714 UNIT/ML 4 ml Mouth/Throa t Four times [...] Problem Vitamin D deficiency (E55.9) Active confirmed 22340010 Problem Generalized anxiety disorder (F41.1) Active confirmed 56575994 Problem Mixed hyperlipidemia (E78.2) Active confirmed 350508116 Problem Acquired hypothyroidism (E03.9) Active confirmed 012847393 Problem Nicotine use disorder (F17.200) Active confirmed 05212966 PLAN OF TREATMENT Pending Test Test Name Order Date HEPATIC FUNCTION PANEL 06/21/2023 LIPID PANEL 06/21/2023 Insurance Providers Payer Name Payer Address Payer Phone Subscriber Number Group Number Insured Name Patient Relationship to Insured Coverage Start Date Coverage End Date [facility] [address] [place] [address] Cindy Valenzuela Self - patient is the insured MEDICAL (GENERAL) HISTORY Medical History History ICD Code Acquired hypothyroidism E03.9 Generalized anxiety disorder F41.1 Nicotine use disorder F17.200 Surgical History Surgery Date(Month/Year) Partial Hysterectomy 2004 Appendectomy 2009 Hospitalization History Reason Date(Month/Year) For above procedures
== END 2025-01-28 10:40 | disposition home or self-care (01) ==
LOC: HO.HPSW 08:51
PROVIDERS: PCP Nurse Practitioner; Visit Provider Nurse Practitioner Family
DX: J44.89 Other specified chronic obstructive pulmonary disease (principal); Z91.09 Other allergy status, other than to drugs and biological substances; Z87.891 Personal history of nicotine dependence; R91.8 Other nonspecific abnormal finding of lung field
CPT/HCPCS: 99214

== ENCOUNTER → 2025-01-28 08:50 | Outpatient (BNVA) | payer OTHER, SELFPAY | PROVIDERS: PCP Nurse Practitioner; Visit Provider Nurse Practitioner Family | DX: J44.89 Other specified chronic obstructive pulmonary disease (principal); R91.8 Other nonspecific abnormal finding of lung field; Z91.09 Other allergy status, other than to drugs and biological substances; Z87.891 Personal history of nicotine dependence | CPT/HCPCS: 99212 ==